=== PATIENT | male | born 1930 | race Caucasian/White ===

== ENCOUNTER 2016-03-26 18:27 | Observation (INO) | payer OTHER ==
--- NOTE | 2016-03-26 18:44 | CPEKG ---
Heart Rate: 77 RR Interval: 779 P-R Interval: 144 QRSD Interval: 108 QT Interval: 420 QTC Interval: 476 P [place]: 66 QRS [place]: -27 T Wave [place]: 78 EKG Severity - BORDERLINE ECG - EKG Impression: SINUS RHYTHM EKG Impression: BORDERLINE PROLONGED QT INTERVAL Electronically Signed By: Edwin Ashraf 26-Mar-2016 20:06:35
[2016-03-26] MEDS ORDERED: NS 1,000 ML IV ONE (18:50)
--- NOTE | 2016-03-26 18:52 | EDPHY ---
HPI/HX/ROS/PE/MDM Narrative: Chief complaint: Syncope, nausea vomiting HPI: 86-year-old male with a history of Lewy body dementia came home from a walk today, sat down and chair. His left him in the came back up scan coordinator to later noticed that he had had a syncopal episode while seated. He was unresponsive for about 20-30 seconds. When he became too she helped him to the ground and laid down. At that point she checked her blood pressure notice that was 80 systolic. She continued to keep them on the ground for a while slowly sat him up and got into the couch with the help of family. He laid there for about an hour but then when he went to go to the bathroom to urinate a he complained of nausea and had a large emesis. He did not have any further syncope. He has not had any chest pain or shortness of breath. He has been in his usual state of health. He had a similar episodes to this in November and again this past February just before [place] when he was seen here. His states that he does not drink enough fluids. We have he had a thorough workup in the past with no significant findings. ROS: 10 point Review of Systems is negative except as noted in the HPI. Physical exam: Gen: Awake, Alert, No Distress HEENT: Nose: no rhinorrhea Eyes: PERRLA, EOMI Mouth: Dry mucous membranes Neck: Supple, no JVD Chest: nontender, lungs clear to auscultation Heart: S1, S2 normal, no murmur Abd: Soft, non-tender, no guarding Back: no CVA tenderness, no midline tenderness Ext: no edema, non-tender Skin: no rash Neuro: CN II-XII intact, Sensation grossly intact, Strength 5/5 in bilateral upper and lower extremities ED Course: EC sinus rhythm with a rate of 77. The borderline QT interval at [address] there is [address] elevation in V2, 2 mm. There is none in any contiguous leads. There are no reciprocal changes. These findings are unchanged from an ECG done on the 21 February 2016. Patient H&H and electrolytes are normal. I reviewed his discharge from his last admission. His syncope was attributed at that time the vasovagal syncope as a component of physically body dementia. So awaiting urine results. Patient is still unable to urinate. Bladder scan shows 800 mL in his bladder. Ramires catheter will be placed. The patient has had 900 mL of clear urine draining from bladder. Urinalysis is negative. He is otherwise resting comfortably. Is ambulating without difficulty. Workup is negative. I will be to discharge with follow-up with Urology and also follow up with Dr. Gross cardiology as was the recommendation in the prior admission for syncope workup. Attempted to ambulate the patient. He was able to ambulate through the department without difficulty but was complaining of some lightheadedness and dizziness. Patient's is very concerned about taking home given that he had a syncopal episode earlier. I have discussed with Dr. Spicer, hospitalist. She will admit to observation for further evaluation. MDM: 86-year-old male presenting with vasovagal syncope, patient has had several episodes in the past. Has been attributed to his Lewy body dementia. He did have an episode of syncope today. He has not followed up with Cardiology since his last admission in February. He did have an admission for the same more episode in November in [place] [facility] had a very extensive workup done at this time. Patient is noted to be in urinary retention with a L of urine in his bladder. This certainly contribute to a vasovagal response. Given his multiple prior workups any association with vasovagal syncope and his Lewy body dementia I will plan on discharging him home with follow-up with both Cardiology and Neurology. I do not see evidence of a rhythm at this time. His electrolytes and cardiac workup are unremarkable as is his ECG. - Data Points Laboratory Results: Laboratory Results 03/26/16 18:45 03/26/16 18:45 03/26/16 03/26/16 20:36 18:45 WBC 8.43 10^3/uL (3.80-9.50) RBC 4.32 L 10^6/uL (4.40-6.38) Hgb 13.7 g/dL (13.7-17.5) Hct 39.7 L % (40.0-51.0) MCV 91.9 fL (81.5-99.8) MCH 31.7 pg (27.9-34.1) MCHC 34.5 g/dL (32.4-36.7) RDW 13.5 % (11.5-15.2) Plt Count 287 10^3/uL (150-400) MPV 9.0 fL (8.7-11.7) Neut % (Auto) 78.8 H % (39.3-74.2) Lymph % (Auto) 12.3 L % (15.0-45.0) [place] % (Auto) 6.4 % (4.5-13.0) Eos % (Auto) 1.3 % (0.6-7.6) Baso % (Auto) 0.7 % (0.3-1.7) Nucleat RBC Rel Count 0.0 % (0.0-0.2) Absolute Neuts (auto) 6.64 H 10^3/uL (1.70-6.50) Absolute Lymphs (auto) 1.04 10^3/uL (1.00-3.00) Absolute Monos (auto) 0.54 10^3/uL (0.30-0.80) Absolute Eos (auto) 0.11 10^3/uL (0.03-0.40) Absolute Basos (auto) 0.06 10^3/uL (0.02-0.10) Absolute Nucleated RBC 0.00 10^3/uL (0-0.01) Immature Gran % 0.5 % (0.0-1.1) Immature Gran # 0.04 10^3/uL (0.00-0.10) Sodium 133 L mEq/L (134-144) Potassium 4.1 mEq/L (3.5-5.2) Chloride 93 L mEq/L (97-110) Carbon Dioxide 30 mEq/l (22-31) Anion Gap 10 mEq/L (8-16) BUN 7 mg/dL (7-23) Creatinine 0.7 mg/dL (0.7-1.3) Estimated GFR > 60 Glucose 119 H mg/dL (70-100) Calcium 8.9 mg/dL (8.5-10.4) Troponin I < 0.012 ng/mL (0-0.034) Urine Color YELLOW Urine Appearance CLEAR Urine pH 8.0 H (5.0-7.5) Ur Specific [place] 1.008 (1.002-1.030) Urine Protein NEGATIVE (NEGATIVE) Urine Ketones NEGATIVE (NEGATIVE) Urine Blood NEGATIVE (NEGATIVE) Urine Nitrate NEGATIVE (NEGATIVE) Urine Bilirubin NEGATIVE (NEGATIVE) Urine Urobilinogen NEGATIVE EU (0.2-1.0) Ur Leukocyte Esterase NEGATIVE (NEGATIVE) Urine Glucose NEGATIVE (NEGATIVE) Medications Given: Discontinued Medications Sodium Chloride (Ns) 1,000 mls @ 0 mls/hr IV ONCE ONE PRN Reason: Wide Open Stop: 03/26/16 18:51 Last Admin: 03/26/16 18:57 Dose: 1,000 mls General Time Seen by Provider: 03/26/16 18:40 Initial Vital Signs: Initial Vital Signs Temperature (C) 36.7 C 03/26/16 18:31 Heart Rate 84 03/26/16 18:31 Respiratory Rate 18 03/26/16 18:31 Blood Pressure 132/68 H 03/26/16 18:31 O2 Sat (%) 96 03/26/16 18:31 O2 Delivery Mode Room Air Allergies/Adverse Reactions: amoxicillin [Amoxicillin] Allergy (Verified 03/26/16 18:30) RANITADINE Allergy (Uncoded 02/21/16 20:59) Home Medications: Medication Instructions Recorded Carbidopa/Levodopa 25/100Mg 1 tab PO TID 02/21/16 [Sinemet 25/100 MG (*)] VITAMIN D 03/26/16 Departure - Departure Disposition: [facility] Inpatient Acute Clinical Impression: Vasovagal syncope, Urinary retention, Dehydration Condition: Fair Referrals: Beatriz Domínguez MD [Primary Care Provider] - As per Instructions
[2016-03-26 19:01] LABS: % IMMATURE GRANULYOCYTES 0.5 % (0.0-1.1); ABSOLUTE IMMATURE GRANULOCYTES 0.04 10^3/uL (0.00-0.10); ADD DIFF? NO; ADD MORPH? NO; ADD SCAN? NO; ATYPICAL LYMPHOCYTE FLAG 20 (0-99); FRAGMENT RBC FLAG 0 (0-99); HEMATOCRIT 39.7 % (40.0-51.0); HEMOGLOBIN 13.7 g/dL (13.7-17.5); LEFT SHIFT FLG 0 (0-99); LIPEMIA HEMOLYSIS FLAG 90 (0-99); MEAN CELL HEMOGLOBIN 31.7 pg (27.9-34.1); MEAN CELL HEMOGLOBIN CONCENTR. 34.5 g/dL (32.4-36.7); MEAN CELL VOLUME 91.9 fL (81.5-99.8); PLATELET CLUMPS FLAG 0 (0-99); PLATELET COUNT 287 10^3/uL (150-400); RED BLOOD CELL COUNT 4.32 10^6/uL (4.40-6.38); RED CELL DISTRIBUTION WIDTH 13.5 % (11.5-15.2)
[2016-03-26 19:12] LABS: ANION GAP 10 mEq/L (8-16); CALCIUM 8.9 mg/dL (8.5-10.4); CARBON DIOXIDE 30 mEq/l (22-31); CHLORIDE 93 mEq/L (97-110); CREATININE 0.7 mg/dL (0.7-1.3); GLOMERULAR FILTRATION RATE > 60; GLUCOSE 119 mg/dL (70-100); POTASSIUM 4.1 mEq/L (3.5-5.2); SODIUM 133 mEq/L (134-144)
[2016-03-26 19:23] LABS: TROPONIN I < 0.012 ng/mL (0-0.034)
[2016-03-26] MEDS ORDERED: LIDOCAINE 2% JELLY 20 ML (UROJECT) ONE (20:24)
[2016-03-26 20:55] LABS: COLOR YELLOW; LEUKOCYTE ESTERASE,URINE NEGATIVE (NEGATIVE); NITRITE,URINE NEGATIVE (NEGATIVE)
[2016-03-26] MEDS ORDERED: ACETAMINOPHEN 325 MG TAB PO PRN (22:25)
[2016-03-26] MEDS ORDERED: ONDANSETRON 4 MG/2 ML VIAL IVP PRN (22:25)
[2016-03-26] MEDS ORDERED: ONDANSETRON DISINTEGRATING 4 MG TAB PO PRN (22:25)
[2016-03-26] MEDS ORDERED: NS 1,000 ML IV SCH (22:45)
--- NOTE | 2016-03-26 23:18 | GHP ---
[f rep st] HISTORY AND PHYSICAL DATE OF ADMISSION: 03/26/2016 CHIEF COMPLAINT: Syncope. HISTORY OF PRESENT ILLNESS: This is an 86-year-old man with a history of Lewy body dementia who had presented with an episode of syncope. The history I am obtaining from him, while he is alone, is sli ghtly different than the history that was obtained by the emergency department physician. Apparently , he went for about a 3-mile walk today. He came back. He tells me that he then lost consciousness. He says that he had no preceding chest pain, shortness of breath. He did not complain of any emesi s though the ED note does state that he had some emesis. He says that he has had episodes of diarrhe a but none today. He says that apparently he has not been able to urinate all day. In the emergency department he was found to have almost a liter of urine in his bladder after being u nable to urinate. We attempted to ambulate him with the intention of discharging him. However, he s till felt dizzy and lightheaded and did not feel stable on his feet. A Ramires was placed. He had an episode of syncope for which he was admitted to this hospital about a month ago. At that point echoc ardiogram was obtained, which showed aortic valve calcifications but no stenosis, normal ejection fra ction. There were no arrhythmias on telemetry. He had been seen by Dr. Gross of Cardiology at that point. It was not felt to be cardiogenic, more felt to be dehydration. PAST MEDICAL/SURGICAL HISTORY: 1. Lewy body dementia. 2. Left knee replacement. 3. Hernia repair. FAMILY HISTORY: Not pertinent. SOCIAL HISTORY: He quit smoking. He rarely drinks. He does not use drugs. He lives with his . 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 He has sons. He lives in [place]. MEDICATIONS: Please see medication reconciliation. ALLERGIES: Amoxicillin, ranitidine. REVIEW OF SYSTEMS: A 10-point review of systems is conducted and is negative except per HPI. PHYSICAL EXAMINATION: VITAL SIGNS: Blood pressure 138/88, heart rate 78, respiration rate 14, satur ating at 96% on room air. Temperature 36.4. GENERAL: The patient is a pleasant man who is lying in bed, comfortable, answering questions kind of slowly. Otherwise in no acute distress. HEENT: Norm ocephalic, atraumatic. His sclerae are nonicteric. CARDIOVASCULAR: Regular rate and rhythm. No mu rmurs, rubs, or gallops. PULMONARY: Lungs clear bilaterally. ABDOMEN: Soft, nontender, nondistend ed. SKIN: No rash. : Ramires. NEUROLOGICAL: Alert and oriented x3. He is moving all extremitie s. Nonfocal neurologic exam. PSYCHIATRIC: Normal mood and affect. LABORATORY DATA: White count is 8.4. Sodium is 133. Troponin is negative. Urinalysis is negative. DATA: 1. I discussed this with Dr. Spicer, planning to admit for syncope and subsequent unsteadiness. 2. EKG which I personally viewed and interpreted shows sinus rhythm. This is unchanged from his pre vious sinus rhythm. IMPRESSION/PLAN: An 86-year-old man presented with syncope, then subsequent unsteadiness. 1. Syncope. Previous workup was negative including monitoring on telemetry as well as echocardiogra m. This episode seems to be in the setting of significant urinary retention, was initially thought t o be vagal which seems most likely to me. His previous episode was thought to be due to dehydration. Regardless, we will monitor him on telemetry. We will not repeat an echocardiogram. I will trend troponins. Further workup depends on clinical course. 2. Urinary retention. Ike was placed in the emergency department. He does not have any medicatio n changes to explain acute urinary retention. Donepezil may be implicated. Would be reasonable to a ttempt to remove before discharge. However, he will likely need to be discharged with Ramires. 3. Lewy body dementia. Continue Aricept and Sinemet. 4. Code status on previous admission was full. I will continue this. 5. Venous thromboembolism risk is moderate. I will give him Lovenox. /[id number]/MODL
[2016-03-27 05:23] LABS: % IMMATURE GRANULYOCYTES 0.3 % (0.0-1.1); ABSOLUTE IMMATURE GRANULOCYTES 0.02 10^3/uL (0.00-0.10); ADD DIFF? NO; ADD MORPH? NO; ADD SCAN? NO; ATYPICAL LYMPHOCYTE FLAG 20 (0-99); FRAGMENT RBC FLAG 0 (0-99); HEMATOCRIT 31.9 % (40.0-51.0); HEMOGLOBIN 10.9 g/dL (13.7-17.5); LEFT SHIFT FLG 0 (0-99); LIPEMIA HEMOLYSIS FLAG 90 (0-99); MEAN CELL HEMOGLOBIN 31.8 pg (27.9-34.1); MEAN CELL HEMOGLOBIN CONCENTR. 34.2 g/dL (32.4-36.7); PLATELET CLUMPS FLAG 0 (0-99); PLATELET COUNT 201 10^3/uL (150-400); RED BLOOD CELL COUNT 3.43 10^6/uL (4.40-6.38); RED CELL DISTRIBUTION WIDTH 13.7 % (11.5-15.2)
[2016-03-27 05:47] LABS: ALANINE AMINOTRANSFERASE 25 IU/L (21-72); ALBUMIN 2.5 g/dL (3.5-5.0); ALKALINE PHOSPHATASE 50 IU/L (38-126); ANION GAP 7 mEq/L (8-16); ASPARTATE AMINOTRANSFERASE 9 IU/L (17-59); BILIRUBIN,TOTAL 0.5 mg/dL (0.1-1.4); CALCIUM 8.1 mg/dL (8.5-10.4); CARBON DIOXIDE 27 mEq/l (22-31); CHLORIDE 101 mEq/L (97-110); CREATININE 0.6 mg/dL (0.7-1.3); GLOMERULAR FILTRATION RATE > 60; GLUCOSE 100 mg/dL (70-100); POTASSIUM 3.8 mEq/L (3.5-5.2); SODIUM 135 mEq/L (134-144); TOTAL PROTEIN 4.8 g/dL (6.3-8.2)
[2016-03-27 07:51] VITALS: O2SAT 95
[2016-03-27] MEDS ORDERED: ENOXAPARIN 40 MG/0.4 ML SYR SC SCH (09:00)
[2016-03-27 11:24] VITALS: BP 98/54; PULSE 74; RESP 13; TEMP 97.8
--- NOTE | 2016-03-27 13:28 | PDIAF ---
- Diagnosis Diagnosis: urinary retention Code Status: Full Code - Medication Management Discharge Medications: Medications to Continue on Transfer Carbidopa/Levodopa 25/100Mg [Sinemet 25/100 MG (*)] 1 tab PO TID 02/21/16 [Last Taken 02/21/16 17:00] Herbals/Supplements -Info Only 1 ea PO DAILY 03/26/16 [Last Taken Unknown] Acetaminophen [Tylenol 325mg (*)] 650 mg PO Q4HRS PRN #0 tab 03/27/16 [Last Taken Unknown] Discharge Medications: Refer to the Discharge Home Medication list for PRN reason. PICC Care - Routine: N/A - Orders Services needed: Home Care, Registered Nurse, Physical Therapy, Occupational Therapy Home Care Face to Face: I certify that this patient was under my care and that I had the required [id number] encounter meeting the encounter requirements on the discharge day. My findings support the fact that the patient is homebound as defined in CMS Chapter 7 Medicare Benefits Manual 30.1.1, The condition of the patient is such that there exists a normal inability to leave home and consequently, leaving home would require a considerable and taxing effort. Diet Recommendation: no restrictions on diet Ramires: Yes - Follow Up Care Current Providers and Referrals: Beatriz Domínguez MD [Primary Care Provider] - As per Instructions Armand Gross MD [Medical Doctor] -
[2016-03-27] MEDS ORDERED: CARBIDOPA/LEVODOPA 25 MG/100 MG TAB PO SCH (16:00)
--- NOTE | 2016-03-27 22:47 | GDS ---
[f rep st] DISCHARGE SUMMARY DISCHARGE DIAGNOSES: 1. Syncope. 2. Lewy body dementia. 3. Urinary retention. PHYSICAL EXAM: GENERAL: The patient is alert. VITAL SIGNS: Afebrile at 36.6, pulse 74, respirator y rate is 13, blood pressure is 98/54, he is saturating 95% on room air. I have seen and evaluated the patient on the day of discharge. HOSPITAL COURSE: The patient is an 86-year-old male who presented to the emergency room after develo ping an episode of syncope. He has had syncope in the past with previous workups being negative. It is likely that this syncopal episode secondary to significant urinary retention with greater than 10 00 cc of urine noted in his bladder. He was unable to urinate, so a Ramires catheter was placed during this hospitalization. He has completely returned to normal. He has been cleared by Physical Therap y and he will return home with assistance of home health care. The Ramires catheter will remain in his bladder at the time of disposition. He will follow up in the outpatient setting with the urologist of his choice. It is also recommended that the patient follow up in the outpatient setting with Dr. Nolan Gross, his hand cigar maker, for Holter monitor placement. PENDING STUDIES: There are none. DISCHARGE MEDICATIONS: Please refer to the EMR form. I have not adjusted the patient's previously p rescribed home medications. FOLLOWUP: Followup will be with Dr. Beatriz Domínguez, his primary care physician, as well as Dr. Nolan bloom, his primary hand cigar maker. I have discussed this discharge plan with the briefcase sewer, as well as the R.N. Home health care has been provided for the patient at the time of disposition. /[id number]/MODL
[2016-03-28] MEDS ORDERED: Herbals/Supplements -Info Only PO SCH (09:00)
== END 2016-03-27 17:01 | disposition home health service (06) ==
LOC: F3E 23:28
PROVIDERS: ADMIT Internal Medicine; ATTEND Internal Medicine
PROC: 0T9B70Z Drainage of Bladder with Drainage Device, Via Natural or Artificial Opening (ICD-10-PCS; principal; 2016-03-26)
DX: R55 Syncope and collapse (principal); E86.0 Dehydration; R33.9 Retention of urine, unspecified; F02.80 Dementia in other diseases classified elsewhere, unspecified severity, without behavioral disturbance, psychotic disturbance, mood disturbance, and anxiety; G31.83 Neurocognitive disorder with Lewy bodies; Z96.652 Presence of left artificial knee joint; Z87.891 Personal history of nicotine dependence
CPT/HCPCS: 51702; 93005; 96360; 97161; 99285; G0378; G8978; G8979

== ENCOUNTER → 2016-03-30 | Outpatient (CLI) | payer OTHER | LOC: BHFA 13:00 | PROVIDERS: ATTEND Internal Medicine Cardiovascular Disease | DX: R55 Syncope and collapse (principal); G31.83 Neurocognitive disorder with Lewy bodies; F02.80 Dementia in other diseases classified elsewhere, unspecified severity, without behavioral disturbance, psychotic disturbance, mood disturbance, and anxiety; R33.9 Retention of urine, unspecified; R31.9 Hematuria, unspecified | CPT/HCPCS: G0463-PO ==

== ENCOUNTER → 2016-04-04 | Outpatient (CLI) | payer OTHER ==
[~2016-04-04] MED LIST: IOPAMIDOL (ISOVUE-300) 100 ML BTL IV ONE
--- NOTE | 2016-04-04 17:29 | CT ---
CT Abdomen and Pelvis (Without and With Contrast) CT Urogram at 1139 Hours History: R33.9, retention of urine, R31.0, gross hematuria, bladder catheter. Technique: Spiral images were obtained through the abdomen and pelvis without contrast for renal ston e evaluation. 91 mL of Isovue-300 IV contrast were administered. After 2-minute and 10-minute delays, spiral imaging was obtained through the abdomen and pelvis without compression. Images were reconst ructed in multiple planes for CT urogram imaging. Volume rendering was also performed. Dose reduction techniques were utilized. Findings: On the noncontrast images, there is no evidence of calculus projected over the kidneys or a long the expected path of the ureters. No bladder calculus is seen as well. With IV contrast administration, there is good uptake and excretion of contrast by the kidneys. No fi lling defects are seen within the collecting system on either side with normal contour to the renal c ollecting structures, as well as the ureters. Ramires catheter in the bladder. There is anterior right and anterior left lateral bladder wall thickening up to 8 mm with lobulated posterior contour of the bladder also noted. No polypoid masses although incompletely filled bladder. Ramires catheter is noted centrally in the bladder with balloon inflated. Small amount of air in the ventral aspect of the blad nallely. The liver, spleen, gallbladder, bile ducts, pancreas, and adrenal glands are normal in appearance. No renal masses seen. Moderate atherosclerotic calcification of aorta and iliac arteries without aneury sm. Moderate stool throughout the colon consistent with constipation. There is no periaortic lymphade nopathy, ascites, or free air. Bowel loops within the abdomen demonstrate no significant abnormalitie s. Images through the pelvis demonstrate no masses, free fluid, or free air. Bowel loops within the pel vis are normal in appearance. Soft tissues are normal as well. L3-L4 severe degenerative disk disease with dorsal disk/osteophyte complex and severe bilateral facet arthropathy resulting in degenerative retrolisthesis and severe central canal stenosis. L4-L5 moderate degenerative disk disease with circ umferential disk bulge and osteophytes and severe bilateral facet arthropathy also resulting in sever e central canal stenosis. Impression: 1. No nephrolithiasis, urinary tract obstruction, or solid exophytic renal masses. Renal collecting s ystems demonstrate no evidence of obstruction or definite masses. 2. Ramires catheter in the bladder with circumferential wall thickening of the bladder especially ventr al and bilateral laterally which may represent chronic cystitis although bladder wall masses such as transitional cell carcinoma cannot be excluded. Consider cystoscopy evaluation given the patient's hi story of hematuria to exclude bladder neoplasm. 3. Atherosclerotic aorta without aneurysm. 4. Constipation. 5. L3-L4 and L4-L5: Moderate to severe degenerative disk disease and facet arthropathy resulting in s evere central canal stenosis.
== END ==
LOC: FIMAGING 10:32
PROVIDERS: ATTEND Physician Assistant
DX: R33.9 Retention of urine, unspecified (principal); R31.9 Hematuria, unspecified; I70.0 Atherosclerosis of aorta; K59.00 Constipation, unspecified; M51.36 Other intervertebral disc degeneration, lumbar region; Z96.0 Presence of urogenital implants
CPT/HCPCS: 74178; Q9967

== ENCOUNTER 2016-06-04 14:29 | Inpatient (IN) | payer OTHER ==
--- NOTE | 2016-06-04 14:37 | CPEKG ---
Heart Rate: 61 RR Interval: 984 P-R Interval: 160 QRSD Interval: 112 QT Interval: 444 QTC Interval: 448 P [place]: 76 QRS [place]: -24 T Wave [place]: 77 EKG Severity - ABNORMAL ECG - EKG Impression: SINUS RHYTHM EKG Impression: NONSPECIFIC INTRAVENTRICULAR CONDUCTION DELAY EKG Impression: PROBABLE ANTEROSEPTAL INFARCT, OLD Electronically Signed By: Alex Zamora 04-Jun-2016 14:46:59
[2016-06-04] MEDS ORDERED: NS 500 ML IV ONE (14:40)
--- NOTE | 2016-06-04 14:43 | EDPHY ---
H & P Time Seen by Provider: 06/04/16 14:29 HPI/ROS: CHIEF COMPLAINT: Syncope, cardiac alert HISTORY OF PRESENT ILLNESS: 86-year-old man was brought in by paramedics after passing out at home. He tells me he was having an early Sunday fish dinner with his when he passed out sitting in a chair. He was out for 2-3 minutes and she called paramedics. No trauma or seizure activity. On arrival paramedics found to be awake but slow to respond. He had ST abnormality on EKG and was called cardiac alert prior to arrival. On arrival the patient has no medical complaints at all. Recent admission in March of this year with urinary retention. REVIEW OF SYSTEMS: Eye: no change in vision ENT: no sore throat Cardiac: No chest pain Pulmonary: no cough or SOB Abdomen: no vomiting, diarrhea, abdominal pain Musculoskeletal: no back pain or neck pain Skin: no rash Neuro: no headache Constitutional: no fever : no urinary symptoms; self catheterizes regularly. A comprehensive 10 point review of systems is otherwise negative aside from elements mentioned in the history of present illness. PAST MEDICAL HISTORY: Lewy body dementia, hernia repair, knee replacement Social history: Nonsmoker, , no alcohol. General Appearance: Alert and conversant, cooperative. Eyes: No scleral icterus. ENT, Mouth: Normal mucous membranes. Respiratory: Normal respiratory effort, breath sounds equal, lungs are clear to auscultation. Cardiovascular: Regular rate and rhythm. Gastrointestinal: Abdomen is soft and non tender. Neurological: Alert, thinks it is 1984, does not know where he is but knows his age. Normally conversant. Face symmetric, normal movement and sensation in all extremities. Skin: Warm and dry, no rashes. Musculoskeletal: No peripheral edema and no joint swelling. Psychiatric: Not agitated. Emergency Department course/MDM: EKG reviewed with Dr. Ravin Fishman from cardiology on arrival. He is in agreement the patient does not require immediate skill labor intervention. Plan for syncope evaluation. Discussed with Dr. Domínguez by text, discussed with Dr. Muro. Admit for IV antibiotics with UTI and new hyponatremia, baseline sodium mid 130s. Levofloxacin chosen because patient has an amoxicillin allergy. Patient specifically does not have SIRS criteria at the time of admission. Smoking Status: Former smoker Constitutional: Initial Vital Signs Temperature (C) 36.2 C 06/04/16 14:33 Heart Rate 62 06/04/16 14:33 Respiratory Rate 14 06/04/16 14:33 Blood Pressure 103/61 06/04/16 14:33 O2 Sat (%) 98 06/04/16 14:33 O2 Delivery Mode Room Air O2 (L/minute) 2 Allergies/Adverse Reactions: amoxicillin [Amoxicillin] Allergy (Verified 06/04/16 14:33) ranitidine Allergy (Verified 06/04/16 15:38) Home Medications: Medication Instructions Recorded Carbidopa/Levodopa 25/100Mg 1 tab PO TID 02/21/16 [Sinemet 25/100 MG (*)] Budesonide [Budesonide EC] 3 mg PO DAILY 06/04/16 Cholecalciferol Vit D3 [Vitamin D3 4,000 units PO DAILY 06/04/16 2000 units tab (OTC)] Dutasteride [Avodart 0.5 MG (*)] 0.5 mg PO HS 06/04/16 Memantine HCl [Namenda Xr] 14 mg PO DAILY18 06/04/16 Multivitamins [Multivitamin (*)] 1 each PO DAILY 06/04/16 Medical Decision Making - Diagnostics EKG Interpretation: 12-lead EKG interpreted by me; official reading is in trace master. My interpretation is sinus, nonspecific conduction delay, patient has upsloping ST elevation in leads V2 only Imaging: CT head per [facility] unchanged from 4 years ago. Differential Diagnosis: Differential diagnosis considered for syncope including but not limited to vasovagal syncope, arrhythmia, dehydration, and blood loss. Consult/Admit Bed Type: [facility] 1454, [place] 1602 - Data Points Laboratory Results: Laboratory Results 06/04/16 14:35 06/04/16 14:35 06/04/16 06/04/16 06/04/16 15:05 14:35 14:35 WBC 6.19 10^3/uL 10^3/uL (3.80-9.50) RBC 3.94 10^6/uL L 10^6/uL (4.40-6.38) Hgb 12.7 g/dL L g/dL (13.7-17.5) Hct 35.5 % L % (40.0-51.0) MCV 90.1 fL fL (81.5-99.8) MCH 32.2 pg pg (27.9-34.1) MCHC 35.8 g/dL g/dL (32.4-36.7) RDW 13.4 % % (11.5-15.2) Plt Count 178 10^3/uL 10^3/uL (150-400) MPV 9.3 fL fL (8.7-11.7) Neut % (Auto) 68.1 % % (39.3-74.2) Lymph % (Auto) 18.9 % % (15.0-45.0) Jay % (Auto) 10.8 % % (4.5-13.0) Eos % (Auto) 1.3 % % (0.6-7.6) Baso % (Auto) 0.6 % % (0.3-1.7) Nucleat RBC Rel Count 0.0 % % (0.0-0.2) Absolute Neuts (auto) 4.21 10^3/uL 10^3/uL (1.70-6.50) Absolute Lymphs (auto) 1.17 10^3/uL 10^3/uL (1.00-3.00) Absolute Monos (auto) 0.67 10^3/uL 10^3/uL (0.30-0.80) Absolute Eos (auto) 0.08 10^3/uL 10^3/uL (0.03-0.40) Absolute Basos (auto) 0.04 10^3/uL 10^3/uL (0.02-0.10) Absolute Nucleated RBC 0.00 10^3/uL 10^3/uL (0-0.01) Immature Gran % 0.3 % % (0.0-1.1) Immature Gran # 0.02 10^3/uL 10^3/uL (0.00-0.10) Sodium 124 mEq/L L mEq/L (134-144) Potassium 4.7 mEq/L mEq/L (3.5-5.2) Chloride 88 mEq/L L mEq/L (97-110) Carbon Dioxide 28 mEq/l mEq/l (22-31) Anion Gap 8 mEq/L mEq/L (8-16) BUN 11 mg/dL mg/dL (7-23) Creatinine 0.8 mg/dL mg/dL (0.7-1.3) Estimated GFR > 60 Glucose 113 mg/dL H mg/dL (70-100) Calcium 9.4 mg/dL mg/dL (8.5-10.4) Troponin I < 0.012 ng/mL ng/mL (0-0.034) Urine Color YELLOW Urine Appearance MODERATELY TURBID Urine pH 6.0 (5.0-7.5) Ur Specific [place] 1.014 (1.002-1.030) Urine Protein 1+ H (NEGATIVE) Urine Ketones TRACE H (NEGATIVE) Urine Blood NEGATIVE (NEGATIVE) Urine Nitrate NEGATIVE (NEGATIVE) Urine Bilirubin NEGATIVE (NEGATIVE) Urine Urobilinogen NEGATIVE EU EU (0.2-1.0) Ur Leukocyte Esterase 3+ H (NEGATIVE) Urine RBC 1-3 /hpf /hpf (0-3) Urine WBC 50-182 /hpf H /hpf (0-3) Ur Epithelial Cells NONE SEEN /lpf /lpf (NONE-1+) Amorphous Sediment PRESENT /hpf /hpf (NONE-1+) Urine Bacteria 2+ /hpf H /hpf (NONE SEEN) Urine Mucus TRACE /lpf /lpf (NONE-1+) Ur Culture Indicated? INDICATED H (NI) Urine Glucose NEGATIVE (NEGATIVE) Medications Given: Discontinued Medications Sodium Chloride (Ns) 500 mls @ 0 mls/hr IV ONCE ONE PRN Reason: As Directed Stop: 06/04/16 14:41 Last Admin: 06/04/16 15:12 Dose: 500 mls Levofloxacin/Dextrose (Levaquin 750 Mg (Premix)) 150 mls @ 100 mls/hr IV EDNOW ONE PRN Reason: Protocol Stop: 06/04/16 17:31 Last Admin: 06/04/16 16:15 Dose: 150 mls Departure - Departure Disposition: [facility] Inpatient Acute Clinical Impression: Hyponatremia Urinary tract infection Qualifiers: Urinary tract infection type: site unspecified Hematuria presence: without hematuria Qualified Code(s): N39.0 - Urinary tract infection, site not specified Condition: Fair
[2016-06-04 14:45] LABS: % IMMATURE GRANULYOCYTES 0.3 % (0.0-1.1); ABSOLUTE IMMATURE GRANULOCYTES 0.02 10^3/uL (0.00-0.10); ADD DIFF? NO; ADD MORPH? NO; ADD SCAN? NO; ATYPICAL LYMPHOCYTE FLAG 20 (0-99); FRAGMENT RBC FLAG 0 (0-99); HEMATOCRIT 35.5 % (40.0-51.0); HEMOGLOBIN 12.7 g/dL (13.7-17.5); LEFT SHIFT FLG 0 (0-99); LIPEMIA HEMOLYSIS FLAG 90 (0-99); MEAN CELL HEMOGLOBIN 32.2 pg (27.9-34.1); MEAN CELL HEMOGLOBIN CONCENTR. 35.8 g/dL (32.4-36.7); MEAN CELL VOLUME 90.1 fL (81.5-99.8); MEAN PLATELET VOLUME 9.3 fL (8.7-11.7); PLATELET CLUMPS FLAG 40 (0-99); PLATELET COUNT 178 10^3/uL (150-400); RED BLOOD CELL COUNT 3.94 10^6/uL (4.40-6.38); RED CELL DISTRIBUTION WIDTH 13.4 % (11.5-15.2)
[2016-06-04] MEDS ORDERED: LIDOCAINE 1% 30 ML SDV ONE (14:45)
[2016-06-04] MEDS ORDERED: fentaNYL 100 MCG/2 ML INJ ONE (14:45)
[2016-06-04] MEDS ORDERED: MIDAZOLAM 2 MG/2 ML VIAL ONE (14:45)
[2016-06-04] MEDS ORDERED: IOPAMIDOL (ISOVUE 370) 100 ML BTL IV ONE (14:46)
[2016-06-04 14:59] LABS: ANION GAP 8 mEq/L (8-16); CALCIUM 9.4 mg/dL (8.5-10.4); CARBON DIOXIDE 28 mEq/l (22-31); CHLORIDE 88 mEq/L (97-110); CREATININE 0.8 mg/dL (0.7-1.3); GLOMERULAR FILTRATION RATE > 60; GLUCOSE 113 mg/dL (70-100); POTASSIUM 4.7 mEq/L (3.5-5.2); SODIUM 124 mEq/L (134-144)
[2016-06-04 15:10] LABS: TROPONIN I < 0.012 ng/mL (0-0.034)
[2016-06-04 15:23] LABS: COLOR YELLOW; LEUKOCYTE ESTERASE,URINE 3+ (NEGATIVE); NITRITE,URINE NEGATIVE (NEGATIVE)
[2016-06-04 15:28] LABS: AMORPHOUS PRESENT /hpf (NONE-1+); BACTERIA 2+ /hpf (NONE SEEN); MUCUS TRACE /lpf (NONE-1+); WBC,URINE 50-182 /hpf (0-3)
[2016-06-04] MEDS ORDERED: ONDANSETRON DISINTEGRATING 4 MG TAB PO PRN (16:40)
[2016-06-04] MEDS ORDERED: ONDANSETRON 4 MG/2 ML VIAL IVP PRN (16:40)
[2016-06-04] MEDS ORDERED: ACETAMINOPHEN 325 MG TAB PO PRN (16:40)
[2016-06-04] MEDS ORDERED: NS 1,000 ML IV SCH (16:45)
--- NOTE | 2016-06-04 17:39 | GHP ---
[f rep st] HISTORY AND PHYSICAL DATE OF ADMISSION: 06/04/2016 CHIEF COMPLAINT: Syncope. HISTORY OF PRESENT ILLNESS: The patient is an 86-year-old male with a history of Lewy body dementia and previous admissions this year for syncope with unremarkable workups. He returns to the emergency department today after another syncopal episode. His is present at the bedside and gives most of the history due to his underlying dementia. He had a syncopal episode this morning, and she considered deferring transfer to the emergency department given prior unremarkable workups; however, he remained faint and dizzy, and came to the emergency department as a cardiac alert. Upon arrival in the ED, he denied any chest pain, shortness of breath, dizziness , headache or heart palpitations. He has previously had a chronic indwelling Ramires catheter for BPH, which was removed 3 weeks ago. He is followed by Urology and since the Ramires catheter was removed, his has been performing straight caths 3 times a day. He denies dysuria or any changes in his urinary habits. He tends to have incomplete bladder emptying. He denies urinary frequency, urgency, abdominal pain, nausea, vomiting or diarrhea. He has had no fevers or chills. His reports he takes a good amount of food, but has had some decreased liquid intake over the past 24 hours. In the emergency department, his vital signs were stable. Laboratory workup revealed an abnormal urinalysis and a sodium level of 124, and he is admitted to the hospital for further evaluation. PAST MEDICAL HISTORY AND SURGICAL HISTORY: 1. Lewy body dementia. 2. History of left knee replacement. 3. Hernia repair. 4. Benign prostatic hypertrophy. 5. History of chronic indwelling Ramires with t.i.d. straight catheterizations over the past several weeks. MEDICATIONS: Please see [employer] for complete updated outpatient medication list. ALLERGIES: Amoxicillin and ranitidine. FAMILY HISTORY: Reviewed and not pertinent. SOCIAL HISTORY: The patient is a prior smoker. He denies alcohol or drug use. He lives with his , who is his primary caregiver. 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 REVIEW OF SYSTEMS: A 10-point review of systems is performed and is negative, except as per HPI. OBJECTIVE: VITAL SIGNS: Temperature is 36.2, blood pressure 112/86, heart rate 88, respiratory rate 18. He is 94% on room air during my evaluation. GENERAL: The patient is awake, alert and oriented to person only. HEENT: Head is atraumatic, normocephalic. Pupils equal, round, reactive to light. Extraocular muscles intact. Oropharynx is clear. He has some facial flushing, which the notes is intermittently present. HEART: Regular rate and rhythm without murmur. LUNGS: Clear to auscultation bilaterally. ABDOMEN: Soft, nondistended, nontender; with normoactive bowel sounds. EXTREMITIES: Without cyanosis, clubbing or edema. NEUROLOGIC: Notable for masked facies. He moves all 4 extremities and otherwise has a nonfocal neuro exam. LABORATORY DATA: CBC reveals a low normal white count, hemoglobin 12.7, hematocrit 35.3. Basic metabolic panel is remarkable for sodium of 124, this is a change from his prior sodium level of 135 on March 27. Chloride is low at 88. Glucose is 113. Creatinine is normal at 0.8. Troponin is negative. Urinalysis reveals 3+ leukocytes with 50-182 white blood cells and 2 + bacteria, negative nitrites, 1+ protein. ASSESSMENT AND PLAN: The patient is an 86-year-old male with history of Lewy body dementia and prior syncopal episodes, who presents to the emergency department with recurrent syncope. Evaluation is remarkable for a low sodium and abnormal urinalysis, and he is admitted for further management. 1. Recurrent syncope. Previous workups have not revealed a cardiac source. He had an echocardiogram in February 2016, which showed a normal ejection fraction and no significant valvular disease. It is possible that he has autonomic dysfunction. I also query postprandial hypotension, as this seems to frequently happen after eating versus orthostasis. He will be admitted to the hospital for observation. We will monitor him on telemetry. He may be a candidate for an outpatient brake shoe rebuilder. 2. Hyponatremia. This is new and may be hypovolemic hyponatremia given his decreased liquid intake in the setting of possible urinary tract infection. We will check urine osmolality and urine sodium for further evaluation. I am going to give him very gentle normal saline overnight and reassess in the morning. 3. Possible urinary tract infection. The patient has no fevers or focal urinary symptoms, though his dementia may make it difficult to ascertain any true symptoms. He has received a dose of Levaquin in the emergency department. Urine culture is pending. We will go ahead and continue antibiotics pending urine culture results. He has no evidence of sepsis. Blood cultures were not drawn. 4. Lewy body dementia. The patient will be continued on his outpatient medications. 5. Deep venous thrombosis prophylaxis with Lovenox. 6. Code status. I had a lengthy discussion about code status with the patient and his . Ultimately, he wishes to be DNR; and the , who is his medical decision maker, agrees with this. 7. Disposition. Patient is admitted to inpatient status as he will likely require greater than 48 hours hospitalization for ongoing management of his syncope, hyponatremia and possible urinary tract infection. PT/OT evaluations are requested. /[id number]/MODL MTDD
[2016-06-04] MEDS ORDERED: MEMANTINE HCL 14 MG PO SCH (18:00)
[2016-06-04] MEDS: DUTASTERIDE 0.5 MG CAP PO SCH (20:59)
[2016-06-04] MEDS: CARBIDOPA/LEVODOPA 25 MG/100 MG TAB PO SCH (20:59)
[2016-06-05 05:34] LABS: ANION GAP 5 mEq/L (8-16); CARBON DIOXIDE 23 mEq/l (22-31); CHLORIDE 95 mEq/L (97-110); CREATININE 0.6 mg/dL (0.7-1.3); GLOMERULAR FILTRATION RATE > 60; GLUCOSE 86 mg/dL (70-100); POTASSIUM 4.5 mEq/L (3.5-5.2); SODIUM 123 mEq/L (134-144)
[2016-06-05] MEDS: CARBIDOPA/LEVODOPA 25 MG/100 MG TAB PO SCH ×3 (08:31→20:07)
[2016-06-05] MEDS: CHOLECALCIFEROL VIT D3 2,000 UNITS TAB/CAP PO SCH (08:31)
[2016-06-05] MEDS: BUDESONIDE 3 MG EC CAP PO SCH (08:32)
[2016-06-05] MEDS: ENOXAPARIN 40 MG/0.4 ML SYR SC SCH (08:32)
--- NOTE | 2016-06-05 13:04 | HOSPPROG ---
Hospitalist Progress Note Assessment/Plan: Mr Garcia is an 86 y/o male with hx of Lewy Body dementia who presented to the ER after a syncopal episode. He has had 3 of these in the past and w/u was unrevealing. Today is my first encounter with the patient, chart reviewed. Also , reviewed his care with Dr Beatriz Domínguez, who is his primary care provider in the OP setting. * recurrent syncope reviewed his care with his , no clear cut etiology question if he could have orthostatic changes/ has Lewy body and parkinsonian type movements orthostatic vital signs today are stable may need Holter at dc low Na could of caused his symptoms *Hyponatremia/poss multifactorial/?SIADH and hypovolemia with low urine Na, likely dehydrated, but has a normal urine osmol will encourage solute intake, cont gentle hydrate oral fluid restrict - 1500 ml per his , he has been drinking increase amounts of H20 at home due to dehydration recheck labs today, check TSH last TSH in February 2016 was 2.2 *chronic urinary retention was seen recently at / had a Ramires in x 2 months urologist removed Ramires and patient is cath 3 x day by his this is being cont by nursing staff here *probable UTI is frequently catheterized Levaquin/ awaiting cx and sensitivities *Lewy Body dementia on Sinemet sees a neurologist at *hx of colitis dairy foods make this worse *DVT prophylaxis: LMWH Subjective: Gilmar feels well/ no complaints/ eating well. Objective: Vital Signs Temp Pulse Resp BP Pulse Ox 36.3 C 70 14 107/58 L 95 06/05/16 11:43 06/05/16 11:43 06/05/16 11:43 06/05/16 11:43 06/05/16 11:43 Laboratory Results 06/05/16 05:00 06/04/16 06/05/16 06/06/16 05:59 05:59 05:59 Intake Total 1585 Output Total 2100 Balance -515 - Physical Exam Constitutional: no apparent distress Eyes: PERRL Ears, Nose, Mouth, Throat: hearing normal Cardiovascular: regular rate and rhythym Respiratory: no respiratory distress Gastrointestinal: normoactive bowel sounds Skin: warm Musculoskeletal: full muscle strength Neurologic: other (alert and answers questions appropriately, frequently answeres for him) Psychiatric: interacting appropriately, not anxious, not encephalopathic, flat affect ICD10 Worksheet Patient Problems: Problems Problem Status Onset Hyponatremia Acute Urinary tract infection Acute Dehydration Acute Nausea vomiting and diarrhea Acute Urinary retention Acute Vasovagal syncope Acute
[2016-06-05 14:20] LABS: ANION GAP 8 mEq/L (8-16); CALCIUM 9.1 mg/dL (8.5-10.4); CARBON DIOXIDE 24 mEq/l (22-31); CHLORIDE 96 mEq/L (97-110); CREATININE 0.7 mg/dL (0.7-1.3); GLOMERULAR FILTRATION RATE > 60; GLUCOSE 84 mg/dL (70-100); POTASSIUM 4.5 mEq/L (3.5-5.2); SODIUM 128 mEq/L (134-144)
[2016-06-05] MEDS: Memantine Hcl [Namenda Xr] 14 MG PO SCH (17:49)
[2016-06-05] MEDS: DESMOPRESSIN 10 MCG/0.1 ML 5ML NASAL SPRAY ALTNARE SCH (19:55)
[2016-06-05] MEDS: DUTASTERIDE 0.5 MG CAP PO SCH (20:07)
[2016-06-06 05:23] LABS: ANION GAP 7 mEq/L (8-16); CALCIUM 8.9 mg/dL (8.5-10.4); CARBON DIOXIDE 26 mEq/l (22-31); CHLORIDE 95 mEq/L (97-110); CREATININE 0.7 mg/dL (0.7-1.3); GLOMERULAR FILTRATION RATE > 60; GLUCOSE 87 mg/dL (70-100); POTASSIUM 4.4 mEq/L (3.5-5.2); SODIUM 128 mEq/L (134-144)
[2016-06-06] MEDS: ENOXAPARIN 40 MG/0.4 ML SYR SC SCH (09:22)
[2016-06-06] MEDS: CHOLECALCIFEROL VIT D3 2,000 UNITS TAB/CAP PO SCH (09:22)
[2016-06-06] MEDS: CARBIDOPA/LEVODOPA 25 MG/100 MG TAB PO SCH ×3 (09:22→21:40)
[2016-06-06] MEDS: BUDESONIDE 3 MG EC CAP PO SCH (09:22)
--- NOTE | 2016-06-06 12:33 | HOSPPROG ---
Hospitalist Progress Note Assessment/Plan: Mr Garcia is an 86 y/o male with hx of Lewy Body dementia who presented to the ER after a syncopal episode. He has had 3 of these in the past and w/u was unrevealing. * recurrent syncope reviewed his care with his , no clear cut etiology question if he could have orthostatic changes/ has Lewy body and parkinsonian type movements orthostatic vital signs are stable may need Holter at dc low Na could of caused his symptoms on the campus monitor has been in sinus had an echo done in Feb 2016 (was admitted for syncope at that time) *Hyponatremia/poss multifactorial/?SIADH and hypovolemia with low urine Na, likely dehydrated, but has a normal urine osmol will encourage solute intake oral fluid restrict - 1500 ml Na level improved today per his , he has been drinking increase amounts of H20 at home due to dehydration TSH is stable *chronic urinary retention was seen recently at / had a Ramires in x 2 months urologist removed Ramires and patient is cath 3 x day by his this is being cont by nursing staff here *probable UTI/klebsiella pneumoniae is frequently catheterized Levaquin *Lewy Body dementia on Sinemet sees a neurologist at *hx of colitis dairy foods make this worse *DVT prophylaxis: LMWH *Plan: should be ready for dc in a.m./ updated patient's . Should get Na level checked weekly till stable/ prefers no HomeCare and will take him for lab draws. Subjective: Gilmar is feeling great/ eating breakfast. Objective: Vital Signs Temp Pulse Resp BP Pulse Ox 36.6 C 75 18 126/74 H 97 06/06/16 08:00 06/06/16 08:00 06/06/16 08:00 06/06/16 08:00 06/06/16 08:00 Laboratory Results 06/06/16 04:30 06/05/16 06/06/16 06/07/16 05:59 05:59 05:59 Intake Total 1585 681 Output Total 0739 4090 Balance -717 -0157 - Physical Exam Constitutional: no apparent distress, appears nourished, not in pain Eyes: PERRL Ears, Nose, Mouth, Throat: hearing normal Respiratory: no respiratory distress Gastrointestinal: normoactive bowel sounds Skin: warm Musculoskeletal: full muscle strength, no muscle tenderness Neurologic: other (alert and oriented, doesn't initiate conversation but answers appropriately) Psychiatric: not encephalopathic, poor insight, poor memory ICD10 Worksheet Patient Problems: Problems Problem Status Onset Hyponatremia Acute Urinary tract infection Acute Dehydration Acute Nausea vomiting and diarrhea Acute Urinary retention Acute Vasovagal syncope Acute
[2016-06-06] MEDS: Memantine Hcl [Namenda Xr] 14 MG PO SCH (17:17)
[2016-06-06] MEDS: DESMOPRESSIN 10 MCG/0.1 ML 5ML NASAL SPRAY ALTNARE SCH (21:39)
[2016-06-06] MEDS: DUTASTERIDE 0.5 MG CAP PO SCH (21:40)
[2016-06-07 05:58] LABS: ANION GAP 8 mEq/L (8-16); CALCIUM 8.7 mg/dL (8.5-10.4); CARBON DIOXIDE 23 mEq/l (22-31); CHLORIDE 94 mEq/L (97-110); CREATININE 0.6 mg/dL (0.7-1.3); GLOMERULAR FILTRATION RATE > 60; GLUCOSE 86 mg/dL (70-100); POTASSIUM 4.5 mEq/L (3.5-5.2); SODIUM 125 mEq/L (134-144)
[2016-06-07] MEDS ORDERED: NS 500 ML IV ONE ×2 (09:29→16:54)
--- NOTE | 2016-06-07 09:35 | HOSPPROG ---
Hospitalist Progress Note Assessment/Plan: Mr Garcia is an 86 y/o male New to my care today with hx of Lewy Body dementia who presented to the ER after a syncopal episode. He has had 3 of these in the past and w/u was unrevealing. 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 has been in sinus had an echo done in Feb 2016 (was admitted for syncope at that time) *Hyponatremia (mildly symptomatic) doubt SIADH with low serum sodium suspect hypovolemia based on exam in combination with poor solute intake -500 cc ns bolus -will consider sodium supplementation *chronic urinary retention was seen recently at / had a Ramires in x 2 months urologist removed Ramires and patient is cath 3 x day by his this is being cont by nursing staff here *probable UTI/klebsiella pneumoniae is frequently catheterized Levaquin *Lewy Body dementia on Sinemet sees a neurologist at *hx of colitis dairy foods make this worse *DVT prophylaxis: LMWH *Plan: continue in hospital care given worsening hyponatremia Subjective: no syncope. no chest pain. still feels "off" poor apetite. not drinking much water. not thirsty Objective: Vital Signs Temp Pulse Resp BP Pulse Ox 36.7 C 66 18 101/63 96 06/07/16 07:16 06/07/16 07:16 06/07/16 07:16 06/07/16 07:16 06/07/16 07:16 Laboratory Results 06/07/16 04:49 06/06/16 06/07/16 06/08/16 05:59 05:59 05:59 Intake Total 681 1000 Output Total 2250 6685 Balance -1569 -75 - Physical Exam Constitutional: chronically ill appearing Ears, Nose, Mouth, Throat: dry mucous membranes Cardiovascular: regular rate and rhythym, no murmur, rub, or gallop Respiratory: no respiratory distress, no rales or rhonchi, clear to auscultation Gastrointestinal: normoactive bowel sounds, soft, non-tender abdomen, no palpable masses, No guarding, No rebound Skin: no rashes or abrasions, no fluctuance, no induration, other (poor turgor) ICD10 Worksheet Patient Problems: Problems Problem Status Onset Hyponatremia Acute Urinary tract infection Acute Dehydration Acute Nausea vomiting and diarrhea Acute Urinary retention Acute Vasovagal syncope Acute
[2016-06-07] MEDS: BUDESONIDE 3 MG EC CAP PO SCH (10:36)
[2016-06-07] MEDS: CARBIDOPA/LEVODOPA 25 MG/100 MG TAB PO SCH ×3 (10:36→21:12)
[2016-06-07] MEDS: CHOLECALCIFEROL VIT D3 2,000 UNITS TAB/CAP PO SCH (10:36)
[2016-06-07] MEDS: ENOXAPARIN 40 MG/0.4 ML SYR SC SCH (10:37)
[2016-06-07] MEDS: Memantine Hcl [Namenda Xr] 14 MG PO SCH (17:10)
[2016-06-07] MEDS: SODIUM CHLORIDE 1,000 MG TAB PO SCH (19:11)
[2016-06-07] MEDS: DUTASTERIDE 0.5 MG CAP PO SCH (21:13)
[2016-06-07] MEDS: DESMOPRESSIN 10 MCG/0.1 ML 5ML NASAL SPRAY ALTNARE SCH (21:13)
[2016-06-08 09:18] LABS: ANION GAP 7 mEq/L (8-16); CALCIUM 8.7 mg/dL (8.5-10.4); CARBON DIOXIDE 24 mEq/l (22-31); CHLORIDE 94 mEq/L (97-110); CREATININE 0.5 mg/dL (0.7-1.3); GLOMERULAR FILTRATION RATE > 60; GLUCOSE 93 mg/dL (70-100); POTASSIUM 4.4 mEq/L (3.5-5.2); SODIUM 125 mEq/L (134-144)
[2016-06-08] MEDS: BUDESONIDE 3 MG EC CAP PO SCH (09:53)
[2016-06-08] MEDS: CHOLECALCIFEROL VIT D3 2,000 UNITS TAB/CAP PO SCH (09:53)
[2016-06-08] MEDS: CARBIDOPA/LEVODOPA 25 MG/100 MG TAB PO SCH (09:54)
[2016-06-08] MEDS: SODIUM CHLORIDE 1,000 MG TAB PO SCH (09:54)
[2016-06-08] MEDS: ENOXAPARIN 40 MG/0.4 ML SYR SC SCH (09:54)
[2016-06-08 11:17] VITALS: BP 101/47; PULSE 77; RESP 15; TEMP 98.2; O2SAT 100
--- NOTE | 2016-06-08 13:46 | GDS ---
[f rep st] DISCHARGE SUMMARY DISCHARGE DIAGNOSES: 1. Recurrent syncope, possibly due to orthostatic hypotension. 2. Hyponatremia, likely multifactorial with a component of SIADH given his urine sodium of 105. 3. Chronic urinary retention. 4. Pyuria with urine culture, growing Klebsiella pneumoniae. 5. History of Lewy body dementia. 6. History of colitis. CONSULTANTS: None. HOSPITAL COURSE: 1. Recurrent syncope: Patient was noted to have some bouts of hypotension during his hospital stay , which have since resolved. He has been monitored on telemetry with no obvious arrhythmias. 2. On an initial presentation the patient was found to be hyponatremic with a serum sodium of 124. During the time of my care the patient appeared to be hypovolemic. A urine sodium done on initial presentation was low at 11, making the diagnosis of SIADH unlikely. On 06/07/2016 the patient was t reated with a L of normal saline, that actually made his serum sodium worse. A repeat urine sodium was done and was elevated at 107. 3. On day of discharge the patient states he feels well and appears to be at his baseline. He is e ating and drinking, and has been on a 1.5 L fluid restriction. I discussed treatment options with t he patient's , who was agreeable to take the patient home and plans to watch him closely for the signs of hyponatremia that were discussed. 4. Klebsiella pneumonia, UTI, with a history of chronic catheterizations: While in the hospital th e patient has been on levofloxacin for the last 4 days. We will discharge him on another 3 days of levofloxacin to complete a 7-day course. PHYSICAL EXAM: VITAL SIGNS: On day of discharge blood pressure 101/47, pulse of 77, respiratory ra te 15, O2 saturation 100% on room air, temperature afebrile. GENERAL: In no acute distress. HEART : S1, S2. LUNGS: Clear. ABDOMEN: Soft. EXTREMITIES: No edema. Pertinent labs and studies: Head CT done 06/04/2016, refer to report. Serum sodium of 124. DISCHARGE MEDICATIONS: Please refer to discharge medication reconciliation in [facility] for full det ails. Below is a preliminary list: New medications on hospital discharge: 1. Levofloxacin 750 mg daily to complete 7 day course. 2. Salt tablets 1 g p.o. twice daily for the next few days. All other home medications are continued at his usual home dosages. DISCHARGE INSTRUCTIONS: The patient will be discharged home, where he was instructed to have a meta bolic panel done on Sunday. He will need followup with his primary care provider, Dr. Domínguez, to ensu re his sodium is improving. He should also be considered for outpatient Holter monitor to further e valuate for causes of his syncopal episodes. Greater than 30 minutes were spent on the discharge of this patient. /[id number]/MODL
[2016-06-08] MEDS ORDERED: LACTULOSE 20 GM/30 ML UDCUP PO PRN (14:33)
[2016-06-08] MEDS ORDERED: POLYETHYLENE GLYCOL 3350 17 GM PKT PO PRN (14:33)
[2016-06-08] MEDS ORDERED: BISACODYL 10 MG SUPP PR PRN (14:33)
[2016-06-08] MEDS ORDERED: MAGNESIUM HYDROXIDE 30 ML UDCUP PO PRN (14:33)
[2016-06-08] MEDS ORDERED: SENNOSIDES/DOCUSATE SODIUM TAB PO SCH (21:00)
== END 2016-06-08 15:44 | disposition home or self-care (01) | DRG 312 ==
LOC: EDUNIT# → F3E 16:46
PROVIDERS: ADMIT Hospitalist; ATTEND Hospitalist
DX: I95.1 Orthostatic hypotension (principal); E87.1 Hypo-osmolality and hyponatremia; N39.0 Urinary tract infection, site not specified; B96.1 Klebsiella pneumoniae [K. pneumoniae] as the cause of diseases classified elsewhere; G31.83 Neurocognitive disorder with Lewy bodies; F02.80 Dementia in other diseases classified elsewhere, unspecified severity, without behavioral disturbance, psychotic disturbance, mood disturbance, and anxiety; N40.1 Benign prostatic hyperplasia with lower urinary tract symptoms; R33.8 Other retention of urine
CPT/HCPCS: 96365; 97116-GP; 97161-GP; 97165-GO; 97530-GP; 97535-GO; G8978-GP-CI; G8979-GP-CI; G8987-GO-CI; G8988-GO-CI; G8989-GO-CI; J1644; J1650; J2250; J3010; Q9967

== ENCOUNTER 2016-10-02 08:16 | Inpatient (IN) | payer OTHER ==
[2016-10-02] MEDS ORDERED: NS 1,000 ML IV ONE (08:20)
--- NOTE | 2016-10-02 08:23 | EDPHY ---
H & P Time Seen by Provider: 10/02/16 08:20 HPI/ROS: CHIEF COMPLAINT: Increased confusion HISTORY OF PRESENT ILLNESS: The patient is an 86-year-old man with a history of dimension BPH whose called EMS this morning because he had increased confusion. He typically self caths every morning but was unable to this morning because of his confusion. He is now incontinent. Also his saturations were 88% on room air for EMS. Patient has trouble answering questioning. No focal weakness or deficits. No chest pain. No vomiting or diarrhea. He does febrile here. Glucose normal for EMS. REVIEW OF SYSTEMS: Unable to obtain secondary to dementia EXAM: GENERAL: Frail, confused HEAD: Atraumatic, normocephalic. EYES: Pupils equal round and reactive to light, extraocular movements intact, sclera anicteric, conjunctiva are normal. ENT: TMs normal, nares patent, oropharynx clear without exudates. Moist mucous membranes. NECK: Normal range of motion, supple without lymphadenopathy or JVD. LUNGS: Breath sounds clear to auscultation bilaterally and equal. No wheezes rales or rhonchi. HEART: Regular rate and rhythm without murmurs, rubs or gallops. ABDOMEN: Soft, nontender, normoactive bowel sounds. No guarding, no rebound. No masses appreciated. Incontinent urine BACK: No CVA tenderness, no spinal tenderness, step-offs or deformities EXTREMITIES: Normal range of motion, no pitting or edema. No clubbing or cyanosis. NEUROLOGICAL: Cranial nerves II through XII grossly intact. Normal speech, normal gait. 5/5 strength, normal movement in all extremities, normal sensation PSYCH: Normal mood, normal affect. SKIN: Warm, dry, normal turgor, no visible rashes or lesions. Source: Patient Exam Limitations: No limitations - Medical/Surgical History Hx Asthma: No Hx Chronic Respiratory Disease: No Hx Diabetes: No Hx Cardiac Disease: No Hx Renal Disease: No Hx Cirrhosis: No Hx Alcoholism: No Hx HIV/AIDS: No Hx Splenectomy or Spleen Trauma: No Other PMH: carlito body dementia, knee replacement, hernia repair, unable to emptybladder, does str cath TID - Family History Significant Family History: No pertinent family hx - Social History Smoking Status: Former smoker Alcohol Use: Sober Drug Use: None Constitutional: Initial Vital Signs Temperature (C) 38.4 C H 10/02/16 08:16 Heart Rate 99 10/02/16 08:16 Respiratory Rate 20 10/02/16 08:16 Blood Pressure 119/71 10/02/16 08:16 O2 Sat (%) 90 L 10/02/16 08:16 O2 Delivery Mode Nasal Cannula O2 (L/minute) 2 Allergies/Adverse Reactions: amoxicillin [Amoxicillin] Allergy (Verified 10/02/16 08:27) ranitidine Allergy (Verified 10/02/16 08:27) Home Medications: Medication Instructions Recorded Carbidopa/Levodopa 25/100Mg 2 tab PO TIDMEAL 02/21/16 [Sinemet 25/100 MG (*)] Cholecalciferol Vit D3 [Vitamin D3 4,000 units PO DAILY@06/04/16 2000 units tab (OTC)] Multivitamins [Multivitamin (*)] 1 each PO DAILY@06/04/16 Desmopressin (Nonrefrigerated) 1 spray ALTNARE 06/05/16 [Desmopressin 10 Mcg/0.1 ml [place]] Docusate Sodium [Colace 100 MG (*)] 100 mg PO HS 10/02/16 Donepezil HCl [Aricept] 5 mg PO DAILY 10/02/16 Finasteride [Proscar 5 MG (*)] 5 mg PO HS 10/02/16 Herbals/Supplements -Info Only 1 ea PO DAILY 10/02/16 Memantine HCl [Namenda Xr] 28 mg PO DAILY18 10/02/16 Sodium Chloride [Salt Tablet] 1,000 mg PO TIDMEAL 10/02/16 Medical Decision Making - Diagnostics EKG Interpretation: An EKG obtained and was read and documented in trace view. Please see trace view for full reading and report. Sinus rhythm, unchanged from previous, no acute ischemic changes, incomplete bundle branch block Imaging Results: Imaging Impressions Chest X-Ray 10/02/16 08:20 Impression: Perihilar bronchitis with some subsegmental atelectasis versus an early infiltrate at the left lung base. Imaging: I viewed and interpreted images myself ED Course/Re-evaluation: The patient has a urinary tract infection and qualifies as severe sepsis. This is catheter associated. I will start him on ertapenem. He has an amoxicillin allergy but has not had trouble with her dependent before. I will admitted to the hospital service. Differential Diagnosis: Partial list of the Differential diagnosis considered include but were not limited to; urinary tract infection, pneumonia, sepsis and although unlikely based on the history and physical exam, I also considered stroke, electrolyte abnormality, acute coronary disease. - Data Points Laboratory Results: Laboratory Results 10/02/16 08:36 10/02/16 08:36 10/02/16 10/02/16 10/02/16 09:23 08:36 08:36 WBC 8.28 10^3/uL 10^3/uL (3.80-9.50) RBC 3.95 10^6/uL L 10^6/uL (4.40-6.38) Hgb 12.9 g/dL L g/dL (13.7-17.5) Hct 36.8 % L % (40.0-51.0) MCV 93.2 fL fL (81.5-99.8) MCH 32.7 pg pg (27.9-34.1) MCHC 35.1 g/dL g/dL (32.4-36.7) RDW 13.5 % % (11.5-15.2) Plt Count 163 10^3/uL 10^3/uL (150-400) MPV 9.6 fL fL (8.7-11.7) Neut % (Auto) 95.3 % H % (39.3-74.2) Lymph % (Auto) 3.3 % L % (15.0-45.0) [place] % (Auto) 0.6 % L % (4.5-13.0) Eos % (Auto) 0.2 % L % (0.6-7.6) Baso % (Auto) 0.2 % L % (0.3-1.7) Nucleat RBC Rel Count 0.0 % % (0.0-0.2) Absolute Neuts (auto) 7.89 10^3/uL H 10^3/uL (1.70-6.50) Absolute Lymphs (auto) 0.27 10^3/uL L 10^3/uL (1.00-3.00) Absolute Monos (auto) 0.05 10^3/uL L 10^3/uL (0.30-0.80) Absolute Eos (auto) 0.02 10^3/uL L 10^3/uL (0.03-0.40) Absolute Basos (auto) 0.02 10^3/uL 10^3/uL (0.02-0.10) Absolute Nucleated RBC 0.00 10^3/uL 10^3/uL (0-0.01) Immature Gran % 0.4 % % (0.0-1.1) Immature Gran # 0.03 10^3/uL 10^3/uL (0.00-0.10) PT INR APTT VBG Lactic Acid 2.1 mmol/L mmol/L (0.7-2.1) Sodium Potassium Chloride Carbon Dioxide Anion Gap BUN Creatinine Estimated GFR Glucose Calcium Total Bilirubin Conjugated Bilirubin Unconjugated Bilirubin AST ALT Alkaline Phosphatase Troponin I Total Protein Albumin Urine Color YELLOW Urine Appearance CLEAR Urine pH 7.0 (5.0-7.5) Ur Specific [place] 1.009 (1.002-1.030) Urine Protein NEGATIVE (NEGATIVE) Urine Ketones NEGATIVE (NEGATIVE) Urine Blood 1+ H (NEGATIVE) Urine Nitrate POSITIVE H (NEGATIVE) Urine Bilirubin NEGATIVE (NEGATIVE) Urine Urobilinogen NEGATIVE EU EU (0.2-1.0) Ur Leukocyte Esterase NEGATIVE (NEGATIVE) Urine RBC 15-25 /hpf H /hpf (0-3) Urine WBC 3-5 /hpf H /hpf (0-3) Ur Epithelial Cells NONE SEEN /lpf /lpf (NONE-1+) Urine Bacteria TRACE /hpf H /hpf (NONE SEEN) Urine Glucose NEGATIVE (NEGATIVE) 10/02/16 10/02/16 08:36 08:36 WBC RBC Hgb Hct MCV MCH MCHC RDW Plt Count MPV Neut % (Auto) Lymph % (Auto) [place] % (Auto) Eos % (Auto) Baso % (Auto) Nucleat RBC Rel Count Absolute Neuts (auto) Absolute Lymphs (auto) Absolute Monos (auto) Absolute Eos (auto) Absolute Basos (auto) Absolute Nucleated RBC Immature Gran % Immature Gran # PT 14.3 SEC SEC (12.0-15.0) INR 1.12 (0.83-1.16) APTT 25.8 SEC SEC (23.0-38.0) VBG Lactic Acid Sodium 139 mEq/L mEq/L (134-144) Potassium 4.0 mEq/L mEq/L (3.5-5.2) Chloride 102 mEq/L mEq/L (97-110) Carbon Dioxide 25 mEq/l mEq/l (22-31) Anion Gap 12 mEq/L mEq/L (8-16) BUN 21 mg/dL mg/dL (7-23) Creatinine 0.8 mg/dL mg/dL (0.7-1.3) Estimated GFR > 60 Glucose 83 mg/dL mg/dL (70-100) Calcium 9.2 mg/dL mg/dL (8.5-10.4) Total Bilirubin 1.0 mg/dL mg/dL (0.1-1.4) Conjugated Bilirubin 0.1 mg/dL mg/dL (0.0-0.5) Unconjugated Bilirubin 0.9 mg/dL mg/dL (0.0-1.1) AST 36 IU/L IU/L (17-59) ALT 46 IU/L IU/L (21-72) Alkaline Phosphatase 71 IU/L IU/L (38-126) Troponin I 0.021 ng/mL ng/mL (0-0.034) Total Protein 6.6 g/dL g/dL (6.3-8.2) Albumin 4.0 g/dL g/dL (3.5-5.0) Urine Color Urine Appearance Urine pH Ur Specific [place] Urine Protein Urine Ketones Urine Blood Urine Nitrate Urine Bilirubin Urine Urobilinogen Ur Leukocyte Esterase Urine RBC Urine WBC Ur Epithelial Cells Urine Bacteria Urine Glucose Medications Given: Discontinued Medications Sodium Chloride (Ns) 1,000 mls @ 0 mls/hr IV ONCE ONE; Wide Open PRN Reason: Protocol Stop: 10/02/16 08:21 Last Admin: 10/02/16 08:39 Dose: 1,000 mls Sodium Chloride (Ns) 1,900 mls @ 3,800 mls/hr 30 ml/kg infuse over 30 min ( 1900 ml) IV EDNOW ONE PRN Reason: Protocol Stop: 10/02/16 10:30 Last Admin: 10/02/16 10:13 Dose: 1,900 mls Departure - Departure Disposition: Home, Routine, Self-Care Clinical Impression: Severe sepsis Urinary tract infection Qualifiers: Urinary tract infection type: catheter-associated UTI Indwelling urinary catheter type: unspecified Encounter type: initial encounter Qualified Code(s): T83.511A - Infection and inflammatory reaction due to indwelling urethral catheter, initial encounter Dementia Qualifiers: Dementia type: Lewy body dementia Dementia behavioral disturbance: without behavioral disturbance Qualified Code(s): G31.83 - Dementia with Lewy bodies Condition: Fair
[2016-10-02 08:45] LABS: % IMMATURE GRANULYOCYTES 0.4 % (0.0-1.1); ABSOLUTE IMMATURE GRANULOCYTES 0.03 10^3/uL (0.00-0.10); ADD DIFF? NO; ADD MORPH? NO; ADD SCAN? NO; ATYPICAL LYMPHOCYTE FLAG 0 (0-99); FRAGMENT RBC FLAG 0 (0-99); HEMATOCRIT 36.8 % (40.0-51.0); HEMOGLOBIN 12.9 g/dL (13.7-17.5); LEFT SHIFT FLG 50 (0-99); LIPEMIA HEMOLYSIS FLAG 90 (0-99); MEAN CELL HEMOGLOBIN 32.7 pg (27.9-34.1); MEAN CELL HEMOGLOBIN CONCENTR. 35.1 g/dL (32.4-36.7); MEAN CELL VOLUME 93.2 fL (81.5-99.8); MEAN PLATELET VOLUME 9.6 fL (8.7-11.7); PLATELET CLUMPS FLAG 10 (0-99); PLATELET COUNT 163 10^3/uL (150-400); RED BLOOD CELL COUNT 3.95 10^6/uL (4.40-6.38); RED CELL DISTRIBUTION WIDTH 13.5 % (11.5-15.2)
--- NOTE | 2016-10-02 08:46 | CPEKG ---
Heart Rate: 93 RR Interval: 645 P-R Interval: 152 QRSD Interval: 118 QT Interval: 372 QTC Interval: 463 P [place]: 51 QRS [place]: -28 T Wave [place]: 87 EKG Severity - ABNORMAL ECG - EKG Impression: SINUS RHYTHM EKG Impression: INCOMPLETE RBBB AND LAFB EKG Impression: PROBABLE ANTEROSEPTAL INFARCT, AGE INDETERM Electronically Signed By: Calin Valero 02-Oct-2016 08:52:55
[2016-10-02 09:02] LABS: ALANINE AMINOTRANSFERASE 46 IU/L (21-72); ALKALINE PHOSPHATASE 71 IU/L (38-126); ANION GAP 12 mEq/L (8-16); ASPARTATE AMINOTRANSFERASE 36 IU/L (17-59); BILIRUBIN-CONJUGATED 0.1 mg/dL (0.0-0.5); BILIRUBIN-UNCONJUGATED 0.9 mg/dL (0.0-1.1); CALCIUM 9.2 mg/dL (8.5-10.4); CARBON DIOXIDE 25 mEq/l (22-31); CHLORIDE 102 mEq/L (97-110); CREATININE 0.8 mg/dL (0.7-1.3); GLOMERULAR FILTRATION RATE > 60; GLUCOSE 83 mg/dL (70-100); SODIUM 139 mEq/L (134-144); TOTAL PROTEIN 6.6 g/dL (6.3-8.2)
[2016-10-02 09:03] LABS: APTT 25.8 SEC (23.0-38.0); INR 1.12 (0.83-1.16); PROTIME(PATIENT) 14.3 SEC (12.0-15.0)
[2016-10-02 09:14] LABS: TROPONIN I 0.021 ng/mL (0-0.034)
[2016-10-02 09:33] LABS: COLOR YELLOW; LEUKOCYTE ESTERASE,URINE NEGATIVE (NEGATIVE); NITRITE,URINE POSITIVE (NEGATIVE)
[2016-10-02 09:47] LABS: BACTERIA TRACE /hpf (NONE SEEN); RBC,URINE 15-25 /hpf (0-3)
[2016-10-02] MEDS ORDERED: NS 1,900 ML IV ONE (10:01)
[2016-10-02] MEDS: ERTAPENEM 1 GM in NS 100 ML IV SCH (10:39)
[2016-10-02] MEDS ORDERED: ONDANSETRON DISINTEGRATING 4 MG TAB PO PRN (12:03)
[2016-10-02] MEDS ORDERED: ONDANSETRON 4 MG/2 ML VIAL IVP PRN (12:03)
[2016-10-02] MEDS ORDERED: ACETAMINOPHEN 325 MG TAB PO PRN (12:03)
[2016-10-02] MEDS ORDERED: NS 1,000 ML IV SCH (12:15)
--- NOTE | 2016-10-02 12:52 | GHP ---
[f rep st] HISTORY AND PHYSICAL DATE OF ADMISSION: 10/02/2016 CHIEF COMPLAINT: Confusion. HISTORY OF PRESENT ILLNESS: This is an 86-year-old male with a history of Lewy body dementia who do es straight cath himself. The patient states that he woke up this morning about 3 o'clock with alexis rs and chills. He was brought in by his who felt that he was more confused this morning. He h as been incontinent. He denies any pain. He denies any focal weakness. REVIEW OF SYSTEMS: Limited review of systems was obtained secondary to patient's dementia. Other t garnica stated above is negative. PAST MEDICAL HISTORY: 1. Lewy body dementia. 2. 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 3. History of left knee replacement and hernia repair. MEDICATIONS: Reviewed. FAMILY HISTORY: Both parents are . SOCIAL HISTORY: Prior smoker. Lives with his . PHYSICAL EXAM: VITAL SIGNS: Afebrile, blood pressure is 102/51, heart rate is 84, oxygen saturatio n is 90% on room air. GENERAL: Patient is well developed, no apparent distress. HEENT: Nonicteri c sclerae. Extraocular movements intact. Slightly dry mucous membranes. NECK: Supple. No thyrom egaly. LUNGS: Good effort. Clear to auscultation bilaterally. CARDIOVASCULAR: Regular rate and rhythm. No murmurs, rubs or gallops. ABDOMEN: Positive bowel sounds. Soft, nontender, nondistend ed. No hepatosplenomegaly. EXTREMITIES: No clubbing, cyanosis, or edema. SKIN: Without rash. W arm, dry, intact. NEURO: Not oriented but moving all 4 extremities equally. PSYCH: Normal mood a nd affect. LABS: White count is normal. He is slightly anemic. Chemistries normal. Creatinine is normal. U A does suggest urinary tract infection. ASSESSMENT: This is an 86-year-old male presenting with urinary tract infection. PLAN: 1. Urinary tract infection. Patient did grow out Klebsiella a few months ago. He has been given I nvanz. Will switch it over to ceftriaxone starting tomorrow. Await cultures. 2. Acute on chronic encephalopathy probably related to his urinary tract infection. 3. History of benign prostatic hypertrophy with self catheterization. We will continue this here o r place an indwelling [place]. 4. Code status. Patient was a DNR last admission. We will continue this. /[id number]/MODL
[2016-10-02] MEDS: SODIUM CHLORIDE 1,000 MG TAB PO SCH ×2 (13:16→18:15)
[2016-10-02] MEDS: CARBIDOPA/LEVODOPA 25 MG/100 MG TAB PO SCH ×2 (13:16→18:15)
[2016-10-02] MEDS: DONEPEZIL HCL 5 MG TAB PO SCH (13:17)
[2016-10-02] MEDS ORDERED: CARBIDOPA/LEVODOPA 25 MG/100 MG TAB PO SCH (18:00)
[2016-10-02] MEDS ORDERED: SODIUM CHLORIDE 1,000 MG TAB PO SCH (18:00)
[2016-10-02] MEDS: Memantine Hcl [Namenda Xr] 28 MG PO SCH (18:15)
[2016-10-02] MEDS: FINASTERIDE 5 MG TAB PO SCH (20:28)
[2016-10-02] MEDS: DOCUSATE SODIUM 100 MG CAP PO SCH (20:29)
[2016-10-02] MEDS: DESMOPRESSIN 10 MCG/0.1 ML 5ML NASAL SPRAY ALTNARE SCH (20:30)
[2016-10-03 05:26] LABS: % IMMATURE GRANULYOCYTES 0.6 % (0.0-1.1); ABSOLUTE IMMATURE GRANULOCYTES 0.07 10^3/uL (0.00-0.10); ADD DIFF? NO; ADD MORPH? NO; ADD SCAN? NO; ATYPICAL LYMPHOCYTE FLAG 0 (0-99); FRAGMENT RBC FLAG 0 (0-99); HEMOGLOBIN 11.1 g/dL (13.7-17.5); LEFT SHIFT FLG 20 (0-99); LIPEMIA HEMOLYSIS FLAG 80 (0-99); MEAN CELL HEMOGLOBIN CONCENTR. 33.6 g/dL (32.4-36.7); MEAN CELL VOLUME 95.1 fL (81.5-99.8); MEAN PLATELET VOLUME 10.1 fL (8.7-11.7); PLATELET CLUMPS FLAG 30 (0-99); PLATELET COUNT 132 10^3/uL (150-400); RED BLOOD CELL COUNT 3.47 10^6/uL (4.40-6.38); RED CELL DISTRIBUTION WIDTH 14.2 % (11.5-15.2)
[2016-10-03 05:43] LABS: ANION GAP 9 mEq/L (8-16); CALCIUM 8.4 mg/dL (8.5-10.4); CARBON DIOXIDE 22 mEq/l (22-31); CHLORIDE 109 mEq/L (97-110); CREATININE 0.7 mg/dL (0.7-1.3); GLOMERULAR FILTRATION RATE > 60; GLUCOSE 97 mg/dL (70-100); POTASSIUM 4.1 mEq/L (3.5-5.2); SODIUM 140 mEq/L (134-144)
[2016-10-03] MEDS: CARBIDOPA/LEVODOPA 25 MG/100 MG TAB PO SCH ×3 (08:41→18:53)
[2016-10-03] MEDS: DONEPEZIL HCL 5 MG TAB PO SCH (08:41)
[2016-10-03] MEDS: SODIUM CHLORIDE 1,000 MG TAB PO SCH ×3 (08:41→18:53)
[2016-10-03] MEDS: ENOXAPARIN 40 MG/0.4 ML SYR SC SCH (08:41)
[2016-10-03] MEDS: ERTAPENEM 1 GM in NS 100 ML IV SCH (11:01)
--- NOTE | 2016-10-03 11:37 | HOSPPROG ---
Hospitalist Progress Note Assessment/Plan: * complicated urinary tract infection due to self catheterization * Continue ceftriaxone * E coli bacteremia * Await sensitivities * BPH * Sees Urology at [place] * Had been decreasing self catheterizations to twice a day - will change that here * Lewy body dementia * history of chronic hyponatremia Subjective: Seems to be improving. No new complaints Objective: Vital Signs Temp Pulse Resp BP Pulse Ox 36.6 C 67 15 99/53 L 92 10/03/16 08:00 10/03/16 08:00 10/03/16 08:00 10/03/16 08:00 10/03/16 08:00 Laboratory Results 10/03/16 05:13 10/03/16 05:13 10/02/16 10/03/16 10/04/16 05:59 05:59 05:59 Intake Total 3350 Output Total 900 425 Balance 2450 -425 PT 14.3 SEC (12.0-15.0) 10/02/16 08:36 INR 1.12 (0.83-1.16) 10/02/16 08:36 - Physical Exam Constitutional: no apparent distress, appears nourished, not in pain Eyes: anicteric sclera, EOMI Ears, Nose, Mouth, Throat: moist mucous membranes Respiratory: no respiratory distress Skin: warm Psychiatric: interacting appropriately, not anxious, not encephalopathic, thought process linear ICD10 Worksheet Patient Problems: Problems Problem Status Onset Dementia Acute Severe sepsis Acute Urinary tract infection Acute Dehydration Acute Hyponatremia Acute Nausea vomiting and diarrhea Acute Urinary retention Acute Vasovagal syncope Acute
[2016-10-03] MEDS: MULTIVITAMINS 1 EACH TAB PO SCH (12:28)
[2016-10-03] MEDS: CHOLECALCIFEROL VIT D3 2,000 UNITS TAB/CAP PO SCH (12:28)
[2016-10-03] MEDS: Memantine Hcl [Namenda Xr] 28 MG PO SCH (18:53)
[2016-10-03] MEDS: FINASTERIDE 5 MG TAB PO SCH (20:02)
[2016-10-03] MEDS: DOCUSATE SODIUM 100 MG CAP PO SCH (20:02)
[2016-10-03] MEDS: DESMOPRESSIN 10 MCG/0.1 ML 5ML NASAL SPRAY ALTNARE SCH (20:03)
[2016-10-04 04:31] LABS: % IMMATURE GRANULYOCYTES 0.1 % (0.0-1.1); ABSOLUTE IMMATURE GRANULOCYTES 0.01 10^3/uL (0.00-0.10); ADD DIFF? NO; ADD MORPH? NO; ADD SCAN? NO; ATYPICAL LYMPHOCYTE FLAG 0 (0-99); FRAGMENT RBC FLAG 0 (0-99); HEMATOCRIT 34.1 % (40.0-51.0); HEMOGLOBIN 11.6 g/dL (13.7-17.5); LEFT SHIFT FLG 0 (0-99); LIPEMIA HEMOLYSIS FLAG 90 (0-99); MEAN CELL HEMOGLOBIN 32.3 pg (27.9-34.1); MEAN PLATELET VOLUME 9.8 fL (8.7-11.7); PLATELET CLUMPS FLAG 0 (0-99); PLATELET COUNT 127 10^3/uL (150-400); RED BLOOD CELL COUNT 3.59 10^6/uL (4.40-6.38); RED CELL DISTRIBUTION WIDTH 14.1 % (11.5-15.2)
[2016-10-04 04:49] LABS: CALCIUM 8.6 mg/dL (8.5-10.4); CHLORIDE 104 mEq/L (97-110); CREATININE 0.7 mg/dL (0.7-1.3); GLOMERULAR FILTRATION RATE > 60; GLUCOSE 103 mg/dL (70-100); SODIUM 137 mEq/L (134-144)
[2016-10-04 04:50] LABS: ANION GAP 10 mEq/L (8-16); CARBON DIOXIDE 23 mEq/l (22-31)
[2016-10-04] MEDS: SODIUM CHLORIDE 1,000 MG TAB PO SCH ×3 (07:55→18:38)
[2016-10-04] MEDS: DONEPEZIL HCL 5 MG TAB PO SCH (07:56)
[2016-10-04] MEDS: ENOXAPARIN 40 MG/0.4 ML SYR SC SCH (07:56)
[2016-10-04] MEDS: CARBIDOPA/LEVODOPA 25 MG/100 MG TAB PO SCH ×3 (09:42→18:38)
[2016-10-04 09:48] VITALS: RESP 18
--- NOTE | 2016-10-04 10:45 | HOSPPROG ---
Hospitalist Progress Note Assessment/Plan: * complicated urinary tract infection due to self catheterization * Continue ceftriaxone * E coli bacteremia * Pansensitive * Recheck blood cultures today * Could probably go home tomorrow on Levaquin * Continue IV ceftriaxone * BPH * Sees Urology at [place] * Had been decreasing self catheterizations to twice a day - will change that here * Lewy body dementia * history of chronic hyponatremia Subjective: Feeling better Objective: Vital Signs Temp Pulse Resp BP Pulse Ox 35.8 C L 73 18 132/76 H 97 10/04/16 09:48 10/04/16 09:48 10/04/16 09:48 10/04/16 09:48 10/04/16 09:48 Laboratory Results 10/04/16 04:24 10/04/16 04:24 10/03/16 10/04/16 10/05/16 05:59 05:59 05:59 Intake Total 300 Output Total 750 200 Balance -450 -200 PT 14.3 SEC (12.0-15.0) 10/02/16 08:36 INR 1.12 (0.83-1.16) 10/02/16 08:36 - Physical Exam Constitutional: no apparent distress, appears nourished, not in pain Eyes: anicteric sclera, EOMI Ears, Nose, Mouth, Throat: moist mucous membranes, hearing normal Cardiovascular: regular rate and rhythym Respiratory: no respiratory distress Gastrointestinal: normoactive bowel sounds, soft, non-tender abdomen, no palpable masses Neurologic: AAOx3 Psychiatric: interacting appropriately, not anxious, not encephalopathic, thought process linear ICD10 Worksheet Patient Problems: Problems Problem Status Onset Dementia Acute Severe sepsis Acute Urinary tract infection Acute Dehydration Acute Hyponatremia Acute Nausea vomiting and diarrhea Acute Urinary retention Acute Vasovagal syncope Acute
[2016-10-04] MEDS: MULTIVITAMINS 1 EACH TAB PO SCH (11:48)
[2016-10-04] MEDS: CHOLECALCIFEROL VIT D3 2,000 UNITS TAB/CAP PO SCH (11:48)
[2016-10-04] MEDS: Memantine Hcl [Namenda Xr] 28 MG PO SCH (18:38)
[2016-10-04] MEDS: DOCUSATE SODIUM 100 MG CAP PO SCH (20:41)
[2016-10-04] MEDS: FINASTERIDE 5 MG TAB PO SCH (20:41)
[2016-10-04] MEDS: DESMOPRESSIN 10 MCG/0.1 ML 5ML NASAL SPRAY ALTNARE SCH (20:41)
[2016-10-05] MEDS: ENOXAPARIN 40 MG/0.4 ML SYR SC SCH (09:41)
[2016-10-05] MEDS: SODIUM CHLORIDE 1,000 MG TAB PO SCH ×2 (09:42→13:29)
[2016-10-05] MEDS: CARBIDOPA/LEVODOPA 25 MG/100 MG TAB PO SCH ×2 (09:42→13:30)
[2016-10-05] MEDS: DONEPEZIL HCL 5 MG TAB PO SCH (09:43)
[2016-10-05] MEDS: CHOLECALCIFEROL VIT D3 2,000 UNITS TAB/CAP PO SCH (13:28)
[2016-10-05] MEDS: MULTIVITAMINS 1 EACH TAB PO SCH (13:29)
[2016-10-05 16:19] VITALS: BP 121/68; PULSE 71; TEMP 98.1; O2SAT 93
--- NOTE | 2016-10-05 17:31 | HOSPPROG ---
Hospitalist Progress Note Assessment/Plan: DISCHARGE DIAGNOSES: -complicated urinary tract infection due to chronic urinary retention and to self catheterization at home -E coli bacteremia -known dementia -known chronic hyponatremia on desmopressin HOSPITAL COURSE SUMMARY: This is the 2nd hospital admission for urinary tract infection in the last 4 months for this man with chronic urinary retention and chronic catheterizations at home. His does his catheterizations as he has some dementia. The patient at this time grew a sensitive E coli from blood cultures and urine culture. His previous infection 4 months ago was a Klebsiella. He was admitted the hospital treated with hydration and antibiotics and had his urine retention treated with intermittent straight catheterizations performed by nursing staff here. He resolved his symptoms quite rapidly here and at this point is stable to discharge back to home. We did review with his and the patient that he will need ongoing catheterizations. They are aware of this and they are not willing at this time to have home care come in to review how things are going with that. He does still need ongoing antibiotic therapy at home and will follow up with his primary care physician in 1 week PENDING TEST RESULTS: None MEDICATION CHANGES: Levaquin 750 mg 2 per day for 7 more days FOLLOW-UP PLAN: With primary care physician in 1 week Greater than 35 minutes bedside and care coordination time today Objective: Vital Signs Temp Pulse Resp BP Pulse Ox 36.7 C 71 18 121/68 H 93 10/05/16 16:00 10/05/16 16:00 10/05/16 16:00 10/05/16 16:00 10/05/16 16:00 Laboratory Results 10/04/16 04:24 10/04/16 04:24 10/04/16 10/05/16 10/06/16 06:59 06:59 06:59 Intake Total 300 1400 Output Total 750 1500 450 Balance -450 -100 -450 PT 14.3 SEC (12.0-15.0) 10/02/16 08:36 INR 1.12 (0.83-1.16) 10/02/16 08:36 ICD10 Worksheet Patient Problems: Problems Problem Status Onset Dementia Acute Severe sepsis Acute Urinary tract infection Acute Dehydration Acute Hyponatremia Acute Nausea vomiting and diarrhea Acute Urinary retention Acute Vasovagal syncope Acute
--- NOTE | 2016-10-06 21:19 | PDDCSUM ---
Discharge Summary Discharge Summary: DISCHARGE DIAGNOSES: -complicated urinary tract infection due to chronic urinary retention and to self catheterization at home -E coli bacteremia -known dementia -known chronic hyponatremia on desmopressin HOSPITAL COURSE SUMMARY: This is the 2nd hospital admission for urinary tract infection in the last 4 months for this man with chronic urinary retention and chronic catheterizations at home. His does his catheterizations as he has some dementia. The patient at this time grew a sensitive E coli from blood cultures and urine culture. His previous infection 4 months ago was a Klebsiella. He was admitted the hospital treated with hydration and antibiotics and had his urine retention treated with intermittent straight catheterizations performed by nursing staff here. He resolved his symptoms quite rapidly here and at this point is stable to discharge back to home. We did review with his and the patient that he will need ongoing catheterizations. They are aware of this and they are not willing at this time to have home care come in to review how things are going with that. He does still need ongoing antibiotic therapy at home and will follow up with his primary care physician in 1 week PENDING TEST RESULTS: None MEDICATION CHANGES: Levaquin 750 mg 2 per day for 7 more days FOLLOW-UP PLAN: With primary care physician in 1 week Greater than 35 minutes bedside and care coordination time today
== END 2016-10-05 17:42 | disposition home or self-care (01) | DRG 698 ==
LOC: EDUNIT# → F1N 12:03 → EEVIPCON 10-03 18:14 → OBSVTOIN 10-03 18:14
PROVIDERS: ADMIT Internal Medicine Pulmonary Disease; ATTEND Internal Medicine
DX: T83.518A Infection and inflammatory reaction due to other urinary catheter, initial encounter (principal); G93.49 Other encephalopathy; E87.1 Hypo-osmolality and hyponatremia; R33.9 Retention of urine, unspecified; B96.20 Unspecified Escherichia coli [E. coli] as the cause of diseases classified elsewhere; F03.90 Unspecified dementia, unspecified severity, without behavioral disturbance, psychotic disturbance, mood disturbance, and anxiety; N40.1 Benign prostatic hyperplasia with lower urinary tract symptoms; Z66 Do not resuscitate
CPT/HCPCS: 92610-GN; 97112-GP; 97116-GP; 97161-GP; 97166-GO; 97535-GO; G0378; G8978-GP-CJ; G8979-GP-CI; G8987-GO-CI; G8988-GO-CI; G8996-GN-CH; G8997-GN-CH; G8998-GN-CH; J0696; J1335; J1650

== ENCOUNTER → 2017-05-27 | Outpatient (CLI) | payer OTHER | LOC: FCPNEURO 20:00 | PROVIDERS: ATTEND Psychiatry & Neurology Sleep Medicine | DX: G47.33 Obstructive sleep apnea (adult) (pediatric) (principal) ==

== ENCOUNTER 2017-07-05 09:04 | Observation (INO) | payer OTHER ==
[2017-07-05] MEDS ORDERED: ONDANSETRON 4 MG/2 ML VIAL IVP ONE (09:10)
--- NOTE | 2017-07-05 09:19 | CPEKG ---
Heart Rate: 65 RR Interval: 923 P-R Interval: 172 QRSD Interval: 126 QT Interval: 476 QTC Interval: 495 P [place]: 70 QRS [place]: -43 T Wave [place]: 59 EKG Severity - ABNORMAL ECG - EKG Impression: SINUS RHYTHM EKG Impression: NONSPECIFIC IVCD WITH LAD EKG Impression: CONSIDER ANTEROSEPTAL INFARCT Electronically Signed By: Rohini Patel 05-Jul-2017 15:03:17
[2017-07-05 09:33] LABS: PLATELET COUNT 221 10^3/uL (150-400)
--- NOTE | 2017-07-05 09:40 | EDPHY ---
H & P Stated Complaint: syncopal/vomit Time Seen by Provider: 07/05/17 09:08 HPI/ROS: CHIEF COMPLAINT: Syncopal episode HISTORY OF PRESENT ILLNESS: 87-year-old male with medical history significant for Lewy body dementia, chronic hyponatremia, recurrent urinary tract infection bleed be secondary to self catheterization, arrives via ambulance after witnessed syncopal episode. He was having breakfast at a restaurant with friends, had eaten breakfast remembers feeling hot, vomited, and friends described him having syncopal episode while he was seated. No seizure activity. No incontinence. Awake alert upon EMS arrival. No complaints of pain. No trauma or fall. No recent illness. No URI symptoms. No fever or chills. describes admission at a hospital in [facility] in May 2017 for similar syncopal episode, diagnosed with UTI at that time. REVIEW OF SYSTEMS: A ten point review of systems was performed and is negative with the exception of the items mentioned in the HPI PAST MEDICAL & SURGICAL HISTORY: Lewy body dementia. Hyponatremia. Recurrent UTI. Urinary Self catheterization. SOCIAL HISTORY: nonsmoker lives with PHYSICAL EXAM (Prior to examination, patient consented to physical exam, hands were washed and my usual and customary physical exam procedures followed) 1) GENERAL: [Well-developed, well-nourished, alert Appears to be in no acute distress. 2) HEAD: Normocephalic, atraumatic 3) HEENT: Pupils equal, round, reactive to light bilaterally. Sclera anicteric. Nasopharynx, oropharynx, clear, no lesions. No trauma such as tongue laceration abrasion Ears bilaterally with normal tympanic membranes. 4) NECK: Full range of motion, no meningeal signs. 5) LUNGS: Clear auscultation bilaterally, no wheezes, no rhonchi, no retractions. 6) HEART: Regular rate and rhythm, no murmur, no heave, no gallop. 7) ABDOMEN: No guarding, no rebound, no focal tenderness, negative McBurney's, negative Dobbs's, negative Rovsing's, negative peritoneal sign, 8) MUSCULOSKELETAL: Moving all extremities, no focal areas of tenderness, no obvious trauma. No peripheral edema or discoloration. 9) BACK: No CVA tenderness, no midline vertebral tenderness, no fluctuance, no step-off, no obvious trauma, no visual or palpable abnormality. 10) SKIN: No rash, no petechiae. 11) Psychiatric: Patient is oriented X 3, there is no agitation. 12) NEURO: Awake, alert, and oriented to person, place and time. Answers questions appropriately. There were no obvious focal neurologic abnormalities. No cerebellar dysfunction. Upper and lower extremities bilaterally with strength 5 / 5, reflexes 2+. DIFFERENTIAL DIAGNOSIS: In no particular order including but limited to VA, PE , hyponatremia, infectious etiology - Medical/Surgical History Hx Asthma: No Hx Chronic Respiratory Disease: No Hx Diabetes: No Hx Cardiac Disease: No Hx Renal Disease: No Hx Cirrhosis: No Hx Alcoholism: No Hx HIV/AIDS: No Hx Splenectomy or Spleen Trauma: No Other PMH: carlito body dementia, knee replacement, hernia repair, unable to emptybladder, does str cath TID - Social History Smoking Status: Former smoker Constitutional: Initial Vital Signs Temperature (C) 36.3 C 07/05/17 09:10 Heart Rate 67 07/05/17 09:10 Respiratory Rate 18 07/05/17 09:10 Blood Pressure 126/72 H 07/05/17 09:10 O2 Sat (%) 94 07/05/17 09:10 O2 Delivery Mode Room Air Allergies/Adverse Reactions: amoxicillin [Amoxicillin] Allergy (Verified 07/05/17 09:14) ranitidine Allergy (Verified 07/05/17 09:14) Home Medications: Medication Instructions Recorded Carbidopa/Levodopa 25/100Mg 2 tab PO TIDMEAL 02/21/16 [Sinemet 25/100 MG (*)] Cholecalciferol Vit D3 [Vitamin D3 4,000 units PO DAILY@06/04/16 2000 units tab (OTC)] Multivitamins [Multivitamin (*)] 1 each PO DAILY@06/04/16 Docusate Sodium [Colace 100 MG (*)] 100 mg PO HS 10/02/16 Donepezil HCl [Aricept 5 MG (*)] 5 mg PO DAILY 10/02/16 Finasteride [Proscar 5 MG (*)] 5 mg PO HS 10/02/16 Sodium Chloride [Salt Tablet] 1,000 mg PO TIDMEAL 10/02/16 C/E/Zn/Cu/OM3/DHA/EPA/LUT/ZEAX 1 each PO BID 07/05/17 [Preservision Areds 2 Softgel] Herbals/Supplements -Info Only 1 ea PO DAILY 07/05/17 Memantine HCl 10 mg PO BID 07/05/17 Tamsulosin HCl [Flomax 0.4 MG (*)] 0.4 mg PO HS 07/05/17 Medical Decision Making - Diagnostics Imaging Results: Imaging Impressions Chest X-Ray 07/05/17 09:26 Impression: 1. No acute process. 2. Mild airways disease and minimal left basilar scarring unchanged. Images reviewed myself ED Course/Re-evaluation: Case was discussed with secondary supervising physician Dr. Patel in the ER. Patient has a history hyponatremia, history of recurrent UTI in the presence of self catheterization. Will obtain laboratory studies and re-evaluated. 10:54 a.m.: Patient was re-evaluated with serial exams. Discussed with the patient his his normal serum sodium, his bacteriuria on urinalysis which may be secondary to chronic colonization. We discussed his negative D-dimer. Doubt PE. Consultation with hospitalist, Rebecca, admit to Dr. Pino Lara. Regarding the patient's urinalysis , hospitalist recommended holding on Levaquin as he may be chronically colonized. The urine has been cultured - Data Points Laboratory Results: Laboratory Results 07/05/17 09:00 07/05/17 09:00 07/05/17 07/05/17 07/05/17 09:50 09:00 09:00 WBC RBC Hgb Hct MCV MCH MCHC RDW Plt Count MPV Neut % (Auto) Lymph % (Auto) [place] % (Auto) Eos % (Auto) Baso % (Auto) Nucleat RBC Rel Count Absolute Neuts (auto) Absolute Lymphs (auto) Absolute Monos (auto) Absolute Eos (auto) Absolute Basos (auto) Absolute Nucleated RBC Immature Gran % Immature Gran # D-Dimer 0.44 ug/mLFEU ug/mLFEU (0.00-0.50) Sodium 136 mEq/L mEq/L (135-145) Potassium 4.2 mEq/L mEq/L (3.5-5.2) Chloride 97 mEq/L mEq/L (97-110) Carbon Dioxide 28 mEq/l mEq/l (22-31) Anion Gap 11 mEq/L mEq/L (8-16) BUN 20 mg/dL mg/dL (7-23) Creatinine 0.8 mg/dL mg/dL (0.7-1.3) Estimated GFR > 60 Glucose 137 mg/dL H mg/dL (70-100) Calcium 9.3 mg/dL mg/dL (8.5-10.4) Troponin I < 0.012 ng/mL ng/mL (0.000-0.034) Urine Color YELLOW Urine Appearance HAZY Urine pH 6.0 (5.0-7.5) Ur Specific [place] 1.017 (1.002-1.030) Urine Protein NEGATIVE (NEGATIVE) Urine Ketones TRACE H (NEGATIVE) Urine Blood NEGATIVE (NEGATIVE) Urine Nitrate POSITIVE H (NEGATIVE) Urine Bilirubin NEGATIVE (NEGATIVE) Urine Urobilinogen NEGATIVE EU EU (0.2-1.0) Ur Leukocyte Esterase 1+ H (NEGATIVE) Urine RBC 1-3 /hpf /hpf (0-3) Urine WBC 25-50 /hpf H /hpf (0-3) Ur Epithelial Cells NONE SEEN /lpf /lpf (NONE-1+) Urine Bacteria 4+ /hpf H /hpf (NONE SEEN) Urine Mucus TRACE /lpf /lpf (NONE-1+) Urine Glucose NEGATIVE (NEGATIVE) Ethyl Alcohol < 10 mg/dL mg/dL (0-10) 07/05/17 09:00 WBC 9.18 10^3/uL 10^3/uL (3.80-9.50) RBC 4.42 10^6/uL 10^6/uL (4.40-6.38) Hgb 14.2 g/dL g/dL (13.7-17.5) Hct 41.4 % % (40.0-51.0) MCV 93.7 fL fL (81.5-99.8) MCH 32.1 pg pg (27.9-34.1) MCHC 34.3 g/dL g/dL (32.4-36.7) RDW 13.8 % % (11.5-15.2) Plt Count 221 10^3/uL 10^3/uL (150-400) MPV 9.6 fL fL (8.7-11.7) Neut % (Auto) 61.0 % % (39.3-74.2) Lymph % (Auto) 28.1 % % (15.0-45.0) [place] % (Auto) 7.7 % % (4.5-13.0) Eos % (Auto) 2.1 % % (0.6-7.6) Baso % (Auto) 0.8 % % (0.3-1.7) Nucleat RBC Rel Count 0.0 % % (0.0-0.2) Absolute Neuts (auto) 5.60 10^3/uL 10^3/uL (1.70-6.50) Absolute Lymphs (auto) 2.58 10^3/uL 10^3/uL (1.00-3.00) Absolute Monos (auto) 0.71 10^3/uL 10^3/uL (0.30-0.80) Absolute Eos (auto) 0.19 10^3/uL 10^3/uL (0.03-0.40) Absolute Basos (auto) 0.07 10^3/uL 10^3/uL (0.02-0.10) Absolute Nucleated RBC 0.00 10^3/uL 10^3/uL (0-0.01) Immature Gran % 0.3 % % (0.0-1.1) Immature Gran # 0.03 10^3/uL 10^3/uL (0.00-0.10) D-Dimer Sodium Potassium Chloride Carbon Dioxide Anion Gap BUN Creatinine Estimated GFR Glucose Calcium Troponin I Urine Color Urine Appearance Urine pH Ur Specific [place] Urine Protein Urine Ketones Urine Blood Urine Nitrate Urine Bilirubin Urine Urobilinogen Ur Leukocyte Esterase Urine RBC Urine WBC Ur Epithelial Cells Urine Bacteria Urine Mucus Urine Glucose Ethyl Alcohol Medications Given: Discontinued Medications Levofloxacin/Dextrose (Levaquin 750 Mg (Premix)) 150 mls @ 100 mls/hr IV EDNOW ONE PRN Reason: Protocol Stop: 07/05/17 12:09 Last Admin: 07/05/17 11:26 Dose: Not Given Ondansetron HCl (Zofran) 4 mg IVP EDNOW ONE Stop: 07/05/17 09:11 Last Admin: 07/05/17 09:14 Dose: 4 mg Departure - Departure Disposition: [facility] Acute Clinical Impression: Urinary tract infection Qualifiers: Urinary tract infection type: catheter-associated UTI Indwelling urinary catheter type: cystostomy catheter Encounter type: initial encounter Qualified Code(s): T83.510A - Infection and inflammatory reaction due to cystostomy catheter, initial encounter; N39.0 - Urinary tract infection, site not specified ; N39.0 - Urinary tract infection, site not specified Syncope Qualifiers: Syncope type: unspecified Qualified Code(s): R55 - Syncope and collapse Condition: Fair
--- NOTE | 2017-07-05 10:05 | CPEKG ---
Heart Rate: 62 RR Interval: 968 P-R Interval: 176 QRSD Interval: 122 QT Interval: 480 QTC Interval: 488 P [place]: 60 QRS [place]: -44 T Wave [place]: 46 EKG Severity - ABNORMAL ECG - EKG Impression: SINUS RHYTHM EKG Impression: NONSPECIFIC IVCD WITH LAD EKG Impression: PROBABLE ANTEROSEPTAL INFARCT, OLD Electronically Signed By: Rohini Patel 05-Jul-2017 15:03:06
[2017-07-05] MEDS ORDERED: ONDANSETRON 4 MG/2 ML VIAL IVP PRN (12:06)
[2017-07-05] MEDS ORDERED: ACETAMINOPHEN 325 MG TAB PO PRN (12:06)
[2017-07-05] MEDS ORDERED: ONDANSETRON DISINTEGRATING 4 MG TAB PO PRN (12:06)
--- NOTE | 2017-07-05 13:28 | GHP ---
[f rep st] HISTORY AND PHYSICAL DATE OF ADMISSION: 07/05/2017 HISTORY OF PRESENT ILLNESS: The patient is a pleasant 87-year-old gentleman with BPH, chronic self-c ath, dementia, Parkinson's, who presents with a syncopal episode. He was at breakfast today. He ate a large omelet. Says he subsequently felt flushed, warm, vomited, and lost consciousness. He came to spontaneously and now he seeks care. He denies chest pain or antecedent palpitations. He continues to self-cath; he has had no difficulty or noticed no change in his urine. He has not medina d fever, chills, cough, sputum, nausea, vomiting, diarrhea. REVIEW OF SYSTEMS: Complete 10-point review of systems conducted and negative except as noted in the HPI. PAST MEDICAL HISTORY: Parkinsonism, dementia, BPH. ALLERGIES: Amoxicillin, ranitidine. HOME MEDICATIONS: Vitamin D3, desmopressin, docusate, donepezil, finasteride, memantine, carbidopa/l evodopa, multivitamin, sodium chloride. SOCIAL HISTORY: He lives with his . Retired. Used to work in [employer]. No t obacco. No alcohol. FAMILY HISTORY: Parents . PHYSICAL EXAMINATION: VITAL SIGNS: Temp 36.3, blood pressure 177/79, pulse 73, was 58 upon presenta tion, breathing 12 times a minute, 93% on room air. GENERAL: No acute distress. HEENT: Sclerae an icteric. Oropharynx clear. Mucous membranes are moist. NECK: Supple without lymphadenopathy or JV D. LUNGS: Clear to auscultation bilaterally. HEART: S1, S2. ABDOMEN: Soft, nontender, nondisten ded. LOWER EXTREMITIES: Without edema. Calves are nontender. There is no suprapubic tenderness. LABORATORY: Sodium 136, potassium 4.2, chloride 97, bicarb 28, BUN 20, creatinine 0.8, glucose 137. Troponin less than 0.012. UA shows 25-50 white cells, 4+ bacteria. Ethyl alcohol level is less mandeep n 10. D-dimer is 0.44. CBC is normal. EKG interpreted by me shows sinus rhythm at 65 with left axi s deviation. There is the appearance of ST-elevation in lead V3 only, but it is actually a pseudo el evation pattern. He has a nonspecific intraventricular conduction delay. This EKG is unchanged from prior. Chest x-ray interpreted by me shows no acute cardiopulmonary disease. I have discussed the case with ANSLEY Russo, of the emergency department. ASSESSMENT/PLAN: This is an 87-year-old gentleman with syncope. 1. Syncope. This is almost certainly vasovagal syncope, given its proximity to a large meal and bra dycardia upon presentation. The patient is currently hemodynamically stable. We will follow. No fu rther workup indicated. 2. I will follow him on telemetry overnight on the possibility he has ongoing bradyarrhythmia. 3. Query urinary tract infection. The patient has pyuria in the setting of self-catheterization, wh ich is a likely explanation for this. He does not have fever, chills, or lower abdominal pain. We w ill hold on further treatment of his urinary tract infection. I believe the emergency department gav e him some levofloxacin. 4. Dementia. Continue his medications. 5. Prophylaxis. If he is in the hospital longer than 24 hours, then pharmacologic prophylaxis is in dicated. 6. Disposition. Observation status. /[id number]/MODL
[2017-07-05] MEDS: SODIUM CHLORIDE 1,000 MG TAB PO SCH (17:25)
[2017-07-05] MEDS: CARBIDOPA/LEVODOPA 25 MG/100 MG TAB PO SCH (17:25)
[2017-07-05] MEDS: MEMANTINE HCL 5 MG TAB PO SCH (19:59)
[2017-07-05] MEDS: PRESERVISION AREDS2 FORMULA EYE VIT 1 EACH PO SCH (19:59)
[2017-07-05] MEDS ORDERED: FINASTERIDE 5 MG TAB PO SCH (21:00)
[2017-07-05] MEDS ORDERED: DOCUSATE SODIUM 100 MG CAP PO SCH (21:00)
[2017-07-05] MEDS ORDERED: TAMSULOSIN HCL 0.4 MG CAP PO SCH (21:00)
[2017-07-06] MEDS: CARBIDOPA/LEVODOPA 25 MG/100 MG TAB PO SCH ×2 (08:28→12:44)
[2017-07-06] MEDS: PRESERVISION AREDS2 FORMULA EYE VIT 1 EACH PO SCH (08:28)
[2017-07-06] MEDS: SODIUM CHLORIDE 1,000 MG TAB PO SCH ×2 (08:29→12:44)
[2017-07-06] MEDS: MEMANTINE HCL 5 MG TAB PO SCH (08:29)
[2017-07-06] MEDS ORDERED: Herbals/Supplements -Info Only PO SCH (09:00)
[2017-07-06] MEDS ORDERED: DONEPEZIL HCL 5 MG TAB PO SCH (09:00)
[2017-07-06] MEDS ORDERED: MULTIVITAMINS 1 EACH TAB PO SCH (12:00)
[2017-07-06] MEDS ORDERED: CHOLECALCIFEROL VIT D3 2,000 UNITS TAB/CAP PO SCH (12:00)
--- NOTE | 2017-07-06 14:13 | ASMTCMCOM ---
CM Note CM Note Notes: Pts case discussed in tx rounds. Pt is being discharged today. PT is recommending HC. OT is recommending home independent. CM met w/ pt for dispo planning. Pt reports that he has [facility] week. Pt deferred d/c planning to his . CM spoke w/ pts . does not think pt needs any services at this time. CM provided w/ senior blue book for resources. CM available for changes. Plan: Independent Date Signed: 07/06/2017 02:12 PM Electronically Signed By:MAUREEN Dickey
[2017-07-06 15:31] VITALS: BP 118/69
--- NOTE | 2017-07-06 15:45 | GDS ---
[f rep st] DISCHARGE SUMMARY DISCHARGE DIAGNOSES: Include: 1. Syncope. 2. Benign prostatic hypertrophy with intermittent self-catheterization. 3. Parkinsonism. 4. Dementia. HISTORY OF PRESENT ILLNESS: An 87-year-old male who presents with an episode of syncope after eating . For details of the patient's initial presentation please see the history and physical dated 2017. CONSULTATIVE SERVICES: None. PROCEDURES: None. HOSPITAL COURSE: 1. Syncope. Patient was admitted, evaluated in the emergency department, based on history, thought likely to have vasovagal syncope. He was admitted to the PCU for telemetry monitoring. Patient's la boratory workup was negative. Telemetry monitoring throughout the evening remained sinus with heart rates in the 70s to 80s with no tachy or bradyarrhythmias. The patient was noted to have lower blood pressures when checked in the morning after taking his evening dosing of his BPH medications althoug h was asymptomatic at the time that these pressures were measured. The patient is being discharged t o home with outpatient followup with his primary care. We are discontinuing 1 of his 2 BPH medicatio ns at disposition with him continuing to self-cath and a BP check by his PCP on 1 agent rather than 2 in the outpatient setting. We have recommended he remain hydrated in the outpatient setting, which is something he is not inclined to do in the past. 2. Acute urinary tract infection. Patient is self-cathing. Urinalysis showed white cells. Urine c ulture was sent and confirmed the presence of greater than 100,000 gram-negative alysha. The patient re ceived levofloxacin in the emergency department as well as a dose on the medical floor. He will comp lete 5 additional days of levofloxacin and again follow in the outpatient setting. MEDICATIONS AT THE TIME OF TRANSFER: Please reference the medication reconciliation printed on 07/06. FOLLOWUP APPOINTMENTS: Include with his PCP in the next 7-10 days for blood pressure check and post disposition followup. PENDING STUDIES: At the time of this dictation include speciation on the gram-negative alysha from his urine culture. I have spent greater than 30 minutes in the planning and coordination of this discharge. /[id number]/MODL
== END 2017-07-06 14:12 | disposition home or self-care (01) ==
LOC: EDUNIT# → F2W 11:50
PROVIDERS: ADMIT Internal Medicine; ATTEND Hospitalist
DX: R55 Syncope and collapse (principal); N39.0 Urinary tract infection, site not specified; T83.518A Infection and inflammatory reaction due to other urinary catheter, initial encounter; B96.20 Unspecified Escherichia coli [E. coli] as the cause of diseases classified elsewhere; N40.1 Benign prostatic hyperplasia with lower urinary tract symptoms; G31.83 Neurocognitive disorder with Lewy bodies; F02.80 Dementia in other diseases classified elsewhere, unspecified severity, without behavioral disturbance, psychotic disturbance, mood disturbance, and anxiety; Z87.440 Personal history of urinary (tract) infections; Z87.891 Personal history of nicotine dependence; Z96.659 Presence of unspecified artificial knee joint; Z88.0 Allergy status to penicillin
CPT/HCPCS: 71046; 93005; 97116; 97161; 97165; G0378; G8978; G8979; G8987; G8988; J1956; 96374; G0480